=== PATIENT | female | born 1940 | race Two or more races ===

== ENCOUNTER 2020-05-02 10:45 | Outpatient (CLI) | payer MEDICARE ==
--- NOTE | 2020-05-03 12:30 | Mammography Report ---
BILATERAL DIGITAL SCREENING MAMMOGRAM: 05/02/2020 CLINICAL: Routine screening. No prior exams were available for comparison. The tissue of both breasts is predominantly fatty. No significant masses, calcifications, or other findings are seen in either breast. IMPRESSION: NEGATIVE There is no mammographic evidence of malignancy. A 1 year screening mammogram is recommended. This exam was interpreted at Station ID: [id number]. NOTE: For mammograms, a report in lay terms will be sent to the patient. Approximately 15% of breast malignancies will not be visualized mammographically. In the management of a palpable breast mass, a negative mammogram must not discourage biopsy of a clinically suspicious lesion. Electronically Signed By: Glynn Vick M.D., jr/penanaly:05/02/2020 11:16:26 ACR BI-RADS Category 1: Negative 3341F PARENCHYMAL PATTERN: (F) - The breast(s) demonstrate(s) diffuse fatty replacement. BI-RADS CATEGORY: (1) - 1 RECOMMENDATION: (ANNUAL) - Recommend routine annual screening mammography. [id number] 1 year screening LATERALITY: (B)
== END 2020-05-02 10:46 | disposition home or self-care (01) ==
LOC: DI.N 10:45
DX: Z12.31 Encounter for screening mammogram for malignant neoplasm of breast (principal)

== ENCOUNTER 2020-07-18 17:00 | Outpatient (CLI) | payer MEDICARE | END 2020-07-18 17:01 | disposition home or self-care (01) | LOC: COV 17:00 | PROVIDERS: ATTEND Ophthalmology | DX: Z01.812 Encounter for preprocedural laboratory examination (principal); H25.811 Combined forms of age-related cataract, right eye; E11.9 Type 2 diabetes mellitus without complications; Z20.822 Contact with and (suspected) exposure to COVID-19 ==

== ENCOUNTER 2020-07-21 06:22 | Day surgery (SDC) | payer MEDICARE ==
[~2020-07-21 06:22] MED LIST: KETOROLAC 0.45% OPHTH DROPS ONE; PROPARACAINE 0.5% OPHTH DROPS 15 ML ONE
[2020-07-21] MEDS ORDERED: PHENYLEPHRINE 2.5% OPHTH 2 ML DROPS RIGHTEYE ONE (06:54)
[2020-07-21] MEDS ORDERED: CYCLOPENTOLATE 1% OPHTH DROPS 2 ML RIGHTEYE ONE (06:54)
[2020-07-21] MEDS ORDERED: LACTATED RINGERS 500 ML IV ONE (06:56)
[2020-07-21] MEDS ORDERED: TIMOLOL 0.5% OPHTH DROPS ONE (07:02)
[2020-07-21] MEDS ORDERED: EPINEPHrine 1 MG/ML AMP ONE (07:02)
[2020-07-21] MEDS ORDERED: BRIMONIDINE 0.2% OPHTH DROPS 5 ML ONE (07:02)
[2020-07-21] MEDS ORDERED: TRIAMCIN/MOXIFLOX OPHTHALMIC 0.6 ML VIAL IO ONE ×2 (07:02→07:36)
[2020-07-21] MEDS ORDERED: MIDAZOLAM 2 MG/2 ML VIAL ONE (07:03)
[2020-07-21] MEDS ORDERED: VANCOMYCIN OPHTHALMI 8MG/0.8ML 8 MG/0.8 ML SYRINGE IO ONE ×2 (07:03→07:36)
[2020-07-21] MEDS ORDERED: BSS/LIDOCAINE/EPINEPHRINE 1 ML SYRINGE ONE (07:03)
--- NOTE | 2020-07-21 07:14 | ANESTHESIA ---
Pre-Anesthesia VS, & Labs - Diagnosis senile cataract right eye - Procedure right cataract extraction with intraocular lens Vital Signs: Temp Pulse Resp BP Pulse Ox 37.1 C 80 16 168/58 H 98 07/21/20 06:35 07/21/20 06:35 07/21/20 06:35 07/21/20 06:35 07/21/20 06:35 Height: 5 ft Weight (kg): 47.6 kg Body Mass Index: 20.5 BMI Classification: Healthy weight - NPO >8 hours - Is Patient ?: No - Lab Results Current Lab Results: Laboratory Tests 07/21/20 06:48: POC Whole Bld Glucose 98 Anes History & Medical History - Anesthetic History Anesthesia Complications: reports: No previous complications - Medical History Cardiovascular: reports: None, Hypertension Pulmonary: reports: Shortness of breath Gastrointestinal: reports: None Urinary: reports: None Musculoskeletal: reports: None Endocrine/Autoimmune: reports: Type 2 diabetes Skin: reports: None History of Cancer?: No - Surgical History Gynecologic: reports: section Exam General: Alert Dental: WNL Mouth Openin Fingerbreadth Mallampati classification: III Thyromental Distance: greater than 6 cm Respiratory: Lungs clear Cardiovascular: Regular rate, Normal S1, Normal S2 Plan Anesthesia Type: MAC Consent for Procedure(s) Verified and Reviewed: Yes Code Status: Attempt Resuscitation ASA classification: 3-Severe systemic disease Is this case an emergency?: No
[2020-07-21] MEDS ORDERED: BRIMONIDINE 0.2% OPHTH DROPS 5 ML OPTH ONE (07:35)
[2020-07-21] MEDS ORDERED: CHONDR SULF/HYALURONATE SYRINGE IO ONE (07:35)
[2020-07-21] MEDS ORDERED: EPINEPHrine 1 MG/ML AMP IR ONE (07:35)
[2020-07-21] MEDS ORDERED: TIMOLOL 0.5% OPHTH DROPS OPTH ONE (07:35)
[2020-07-21] MEDS ORDERED: PROPARACAINE 0.5% OPHTH DROPS 15 ML EACHEYE ONE (07:36)
[2020-07-21] MEDS ORDERED: BSS/LIDOCAINE/EPINEPHRINE 1 ML SYRINGE IO ONE (07:36)
[2020-07-21] MEDS ORDERED: fentaNYL 100 MCG/2 ML VIAL ONE (07:37)
[2020-07-21] MEDS ORDERED: TRYPAN BLUE 0.5 ML SYRINGE IO ONE (07:38)
[2020-07-21] MEDS ORDERED: LACTATED RINGERS 100 ML IV ONE (07:57)
[2020-07-21 08:19] VITALS: BP 134/55
--- NOTE | 2020-07-21 10:09 | ANESTHESIA POST OP EVALUATION ---
Anesthesia Post Eval - Post Anesthesia Eval Vitals: Last Vital Signs Temp 36.4 C L 07/21/20 08:17 Pulse 71 07/21/20 08:17 Resp 16 07/21/20 08:17 BP 134/55 H 07/21/20 08:17 Pulse Ox 100 07/21/20 08:17 CV Function Including HR & BP: Stable Pain Control: Satisfactory Nausea & Vomiting: Negative Mental Status: Baseline Respiratory Status: Airway Patent Hydration Status: Satisfactory Anesthesia Complications: None
--- NOTE | 2020-07-21 11:06 | OPERATIVE REPORT ---
Operative Report - Other Other Information/Narrative: Date of Surgery: 07/21/20 Preop Dx: Visually significant cataract right eye. This was the first cataract surgery. Postop Dx: Same Procedure: Phacoemulsification with posterior chamber intraocular lens implant right eye Surgeon: Dr. Yao Jay Anesthesia: Monitored anesthesia care Complications: None Operative Indications: This is a 80-year-old F with progressive vision loss in the right eye due to 4+ nuclear sclerotic, and 3-4+ posterior subcapsular. Best corrected visual acuity was 20/630 with glare to light perception vision in the right eye. Indications for surgery were: - Overall decrease in vision - Difficulty seeing words on a computer screen - Difficulty reading - Difficulty seeing words, closed captions, or game scores on TV - Difficulty seeing street signs - Difficulty driving at night because of headlights from other vehicles - Difficulty with glare or bright lights in any situation - Difficulty tracking a golf ball - Decreased acuity with firearms The patient was consented at length concerning the risks and benefits of cataract surgery after which the patient expressed a desire to proceed with surgery. Operative Procedure: The patient was taken into OR#3 and placed under monitored anesthesia care. A surgical time-out was conducted confirming correct patient, correct procedure, and correct surgical site. The patient was given topical anesthesia and then prepped and draped in the usual sterile fashion. The eye was entered at the 6 and 3 oclock positions. Intracameral Shugarcaine was injected into the anterior chamber followed by a dispersive viscoelastic. A continuous-tear curvilinear capsulorhexis was performed. The nucleus was hydrodissected and phacoemulsified. The cortex was evacuated using automated infusion and aspiration. A cohesive viscoelastic was injected into the capsular bag and a 24.5 diopter intraocular lens was inserted into the bag. Infusion and aspiration were used to evacuate the viscoelastic materials from the eye. The wounds were hydrated and the eye inflated to physiologic pressure using balanced salt solution. Approximately 0.25ml of a mixture of triamcinolone and moxifloxacin was injected trans-sclerally into the vitreous in the infero temporal quadrant using a 30 gauge cannula. An additional 0.55ml of a mixture of triamcinolone, moxifloxacin, and vancomycin was injected subconjunctivally in the superior quadrant for infection and inflammation prophylaxis. Wound integrity was checked with Weck-Mile sponges. The patient was taken from the operating room in good condition and given post-op instructions.
== END 2020-07-21 06:23 | disposition home or self-care (01) ==
LOC: SDS 06:22
PROVIDERS: ATTEND Ophthalmology
DX: E11.36 Type 2 diabetes mellitus with diabetic cataract (principal); H25.811 Combined forms of age-related cataract, right eye; I10 Essential (primary) hypertension; F03.90 Unspecified dementia, unspecified severity, without behavioral disturbance, psychotic disturbance, mood disturbance, and anxiety; Z79.84 Long term (current) use of oral hypoglycemic drugs; Z79.899 Other long term (current) drug therapy
CPT/HCPCS: 66984; A9270; J3490; J7120

== ENCOUNTER 2021-01-21 12:46 | Observation (INO) | payer MEDICARE ==
--- NOTE | 2021-01-21 13:17 | ED Physician Documentation ---
PD HPI DYSPNEA - Stated complaint Stated Complaint: SENT BY DOC-ANEMIA - Chief complaint Chief Complaint: General - History obtained from History obtained from: Patient - History of Present Illness Timing - onset: Unknown (The patient went to her primary care yesterday with somewhat routine medical appointment with complaints of fatigue for the last month or so. Had routine bloods drawn and noted to be significantly anemic and referred to the ER.) Timing - onset during: Light activity Timing - duration: Weeks, Months (fatigue and general weakness the past month or so. Son states the last routine blood testings were about a year ago.) Timing - details: Gradual onset Inciting event(s): Other (patient denies any visible blood loss (no nosebleeds, vaginal bleeding, blood/melena in stools).). No: URI Improved by: Rest Associated symptoms: Other (general weakness and dyspnea). No: Fever, Cough, Chest pain / discomfort, Bilateral edema Recently seen: Clinic (primary care visit yesterday with labs done, and result today showing significant anemia.) Review of Systems Constitutional: denies: Fever, Chills Nose: denies: Rhinorrhea / runny nose, Congestion, Epistaxis Throat: denies: Sore throat Cardiac: denies: Chest pain / pressure, Palpitations, Pedal edema Respiratory: reports: Dyspnea. denies: Cough GI: denies: Abdominal Pain, Vomiting, Diarrhea, Bloody / black stool : denies: Hematuria, Vaginal bleeding Neurologic: reports: Generalized weakness. denies: Focal weakness, Altered mental status, Headache Endocrine: denies: Weight loss, Easy bruising / bleeding PD PAST MEDICAL HISTORY - Past Medical History Cardiovascular: None, Hypertension Respiratory: Shortness of breath Endocrine/Autoimmune: Type 2 diabetes GI: None : None HEENT: None Psych: None Musculoskeletal: None Derm: None - Past Surgical History /MEDICAL ADMINISTRATOR: section - Present Medications Home Medications: Ambulatory Orders Medication Instructions Recorded Confirmed Lovastatin 20 mg PO QPM 01/21/21 01/21/21 Metoprolol Tartrate [Lopressor] 25 mg PO DAILY 01/21/21 hydroCHLOROthiazide [Hydrodiuril] 25 mg PO DAILY 01/21/21 01/21/21 metFORMIN [Glucophage] 1,000 mg PO BIDWM 01/21/21 01/21/21 - Allergies Allergies/Adverse Reactions: Allergies Allergy/AdvReac Type Severity Reaction Status Date / Time No Known Drug Allergies Allergy Verified 01/21/21 13:13 PD ED PE NORMAL - Vitals Vital signs reviewed: Yes - General General: Alert and oriented X 3, No acute distress, Well developed/nourished - HEENT HEENT: Pharynx benign - Neck Neck: Supple, no meningeal sign, No adenopathy - Cardiac Cardiac: RRR, No murmur - Respiratory Respiratory: Clear bilaterally - Abdomen Abdomen: Normal bowel sounds, Soft, Non tender, Non distended - Rectal Rectal: Deferred - Back Back: No CVA TTP - Derm Derm: Warm and dry. No: Normal color (moderately pale coloration) - Extremities Extremities: Normal ROM s pain, No edema, No calf tenderness / cord - Neuro Neuro: Alert and oriented X 3, No motor deficit, Normal speech Eye Opening: Spontaneous Motor: Obeys Commands Verbal: Oriented GCS Score: 15 Results - Vitals Vitals: Vital Signs - 24 hr 01/21/21 01/21/21 01/21/21 13:05 15:12 15:48 Temperature 36.5 C 36.6 C Heart Rate 66 72 73 Respiratory 20 16 12 Rate Blood Pressure 127/81 H 135/55 H 134/56 H O2 Saturation 99 98 01/21/21 15:59 Temperature 36.6 C Heart Rate 75 Respiratory 15 Rate Blood Pressure 131/62 H O2 Saturation Oxygen O2 Source Room air - Labs Labs: Laboratory Tests 01/21/21 01/21/21 01/21/21 14:15 14:15 14:15 WBC 6.7 RBC 2.79 L Hgb 4.6 L* Hct 18.1 L* MCV 64.9 L MCH 16.5 L MCHC 25.4 L RDW 19.7 H Plt Count 306 MPV 9.3 Neut # (Auto) 5.4 Lymph # (Auto) 0.6 L [place] # (Auto) 0.6 Eos # (Auto) 0.0 Baso # (Auto) 0.0 Absolute Nucleated RBC 0.04 Nucleated RBC % 0.6 Sodium 138 Potassium 4.0 Chloride 100 L Carbon Dioxide 26 Anion Gap 12.0 BUN 22 H Creatinine 0.8 Estimated GFR (MDRD) 69 L Glucose 195 H Calcium 9.2 Iron 16 L TIBC 475 H % Saturation 3 L Transferrin 339 Total Bilirubin 0.8 AST 15 ALT 15 Alkaline Phosphatase 50 Troponin I High Sens B-Natriuretic Peptide Total Protein 6.9 Albumin 4.0 Globulin 2.9 Albumin/Globulin Ratio 1.4 Lipase 34 Vitamin B12 Folate Blood Type A POSITIVE Blood Type Recheck Antibody Screen NEGATIVE Crossmatch IS Only See Detail 01/21/21 01/21/21 01/21/21 14:15 14:15 14:15 WBC RBC Hgb Hct MCV MCH MCHC RDW Plt Count MPV Neut # (Auto) Lymph # (Auto) [place] # (Auto) Eos # (Auto) Baso # (Auto) Absolute Nucleated RBC Nucleated RBC % Sodium Potassium Chloride Carbon Dioxide Anion Gap BUN Creatinine Estimated GFR (MDRD) Glucose Calcium Iron TIBC % Saturation Transferrin Total Bilirubin AST ALT Alkaline Phosphatase Troponin I High Sens 128.3 H* B-Natriuretic Peptide 559 H Total Protein Albumin Globulin Albumin/Globulin Ratio Lipase Vitamin B12 437 Folate 10.13 Blood Type Blood Type Recheck Antibody Screen Crossmatch IS Only 01/21/21 14:47 WBC RBC Hgb Hct MCV MCH MCHC RDW Plt Count MPV Neut # (Auto) Lymph # (Auto) [place] # (Auto) Eos # (Auto) Baso # (Auto) Absolute Nucleated RBC Nucleated RBC % Sodium Potassium Chloride Carbon Dioxide Anion Gap BUN Creatinine Estimated GFR (MDRD) Glucose Calcium Iron TIBC % Saturation Transferrin Total Bilirubin AST ALT Alkaline Phosphatase Troponin I High Sens B-Natriuretic Peptide Total Protein Albumin Globulin Albumin/Globulin Ratio Lipase Vitamin B12 Folate Blood Type Blood Type Recheck A POSITIVE Antibody Screen Crossmatch IS Only PD MEDICAL DECISION MAKING - ED course Complexity details: reviewed results, re-evaluated patient (Dyspnea on exertion. No orthopnea nor edema per se. Does have elevated BNP and troponin suggestive of ischemia related to the anemia presumably.), considered differential (severe anemia without noted blood loss. had not had prior blood count for about a year, so rate of development of the anemia uncertain.), d/w patient Departure - Departure Disposition: ED Place in Observation Clinical Impression: Severe anemia, Iron deficiency, Dyspnea on exertion, Elevated troponin Condition: Stable Record reviewed to determine appropriate education?: Yes
[2021-01-21] MEDS ORDERED: SODIUM CHLORIDE 0.9% 1,000 ML IV STA (14:09)
[2021-01-21 14:37] LABS: BASOPHILS % (AUTO) 0.4 %; EOSINOPHILS % (AUTO) 0.4 %; LYMPHOCYTES # (AUTO) 0.6 10^3/uL (1.5-3.5); LYMPHOCYTES % (AUTO) 8.8 %; MEAN CORPUSCULAR HEMOGLOBIN 16.5 pg (27.0-31.0); MEAN CORPUSCULAR HGB CONC 25.4 g/dL (32.0-36.0); MEAN CORPUSCULAR VOLUME 64.9 fL (81.0-99.0); MEAN PLATELET VOLUME 9.3 fL (7.9-10.8); MONOCYTES # (AUTO) 0.6 10^3/uL (0.0-1.0); MONOCYTES % (AUTO) 8.8 %; NEUTROPHILS # (AUTO) 5.4 10^3/uL (1.5-6.6); NEUTROPHILS % (AUTO) 81.3 %; NRBC ABSOLUTE COUNT (AUTO) 0.04 x10^3/uL; NUCLEATED RED BLOOD CELLS AUTO 0.6 /100WBC; PLT - PLATELET COUNT 306 10^3/uL (130-450); RED BLOOD COUNT 2.79 10^6/uL (4.20-5.40); RED CELL DISTRIBUTION WIDTH 19.7 % (12.0-15.0); WHITE BLOOD COUNT 6.7 x10^3/uL (4.8-10.8)
[2021-01-21 14:41] LABS: HCT - HEMATOCRIT 18.1 % (37.0-47.0); HGB - HEMOGLOBIN 4.6 g/dL (12.0-16.0)
[2021-01-21 14:50] LABS: ALBUMIN/GLOBULIN RATIO 1.4 (1.0-2.2); BILIRUBIN,TOTAL 0.8 mg/dL (0.2-1.0); CALCIUM 9.2 mg/dL (8.5-10.3); CREATININE 0.8 mg/dL (0.4-1.0); TOTAL PROTEIN 6.9 g/dL (6.7-8.2)
[2021-01-21 15:07] LABS: FOLATE 10.13 ng/mL (5.90 - >24.8)
[2021-01-21] MEDS ORDERED: ONDANSETRON ODT 4 MG TABLET TL PRN (16:02)
[2021-01-21] MEDS ORDERED: ACETAMINOPHEN 325 MG TABLET PO PRN (16:02)
[2021-01-21] MEDS ORDERED: oxyCODONE 5 MG TABLET PO PRN (16:02)
[2021-01-21] MEDS ORDERED: ONDANSETRON 4 MG/2 ML VIAL IVP PRN (16:02)
[2021-01-21] MEDS ORDERED: SODIUM CHLORIDE FLUSH 0.9% 10 ML SYRINGE IVP PRN (16:02)
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
[2021-01-21] MEDS ORDERED: LACTATED RINGERS 1,000 ML IV SCH (17:00)
[2021-01-21 17:19] LABS: CORONAVIRUS 229E-RESP PCR NOT DETECTED; CORONAVIRUS HKU1-RESP PCR NOT DETECTED; CORONAVIRUS NL63-RESP PCR NOT DETECTED; CORONAVIRUS OC43-RESP PCR NOT DETECTED
[2021-01-21 17:20] LABS: B. PARAPERTUSSIS- RESP PCR PAN NOT DETECTED; B. PERTUSSIS- RESP PCR PANEL NOT DETECTED; C. PNEUMONIAE- RESP PCR PANEL NOT DETECTED; HUMAN METAPNEUMOVIRUS NOT DETECTED; INFLUENZA A- RESP PCR PANEL NOT DETECTED; INFLUENZA B - RESP PCR PANEL NOT DETECTED; M. PNEUMONIAE- RESP PCR PANEL NOT DETECTED; PARAINFLUENZA VIRUS 1 NOT DETECTED; PARAINFLUENZA VIRUS 2 NOT DETECTED; PARAINFLUENZA VIRUS 3 NOT DETECTED; PARAINFLUENZA VIRUS 4 NOT DETECTED; RHINOVIRUS/ENTEROVIRUS NOT DETECTED; RSV- RESP PCR PANEL NOT DETECTED; SARS-CoV-2 -RESP PCR PANEL NOT DETECTED
[2021-01-21] MEDS: SODIUM CHLORIDE FLUSH 0.9% 10 ML SYRINGE IVP SCH (17:51)
[2021-01-21] MEDS: INSULIN ASPART 300 UNIT/3 ML PEN SUBQ SCH (21:54)
[2021-01-22] MEDS: SODIUM CHLORIDE FLUSH 0.9% 10 ML SYRINGE IVP SCH ×2 (00:40→09:09)
[2021-01-22 05:47] LABS: HCT - HEMATOCRIT 24.2 % (37.0-47.0); HGB - HEMOGLOBIN 7.2 g/dL (12.0-16.0); MEAN CORPUSCULAR HEMOGLOBIN 21.1 pg (27.0-31.0); MEAN CORPUSCULAR HGB CONC 29.8 g/dL (32.0-36.0); MEAN CORPUSCULAR VOLUME 70.8 fL (81.0-99.0); MEAN PLATELET VOLUME 8.8 fL (7.9-10.8); RED BLOOD COUNT 3.42 10^6/uL (4.20-5.40); RED CELL DISTRIBUTION WIDTH 23.6 % (12.0-15.0); WHITE BLOOD COUNT 7.3 x10^3/uL (4.8-10.8)
[2021-01-22] MEDS: INSULIN ASPART 300 UNIT/3 ML PEN SUBQ SCH ×2 (07:35→11:53)
--- NOTE | 2021-01-22 07:37 | PHARMACY PROGRESS NOTE ---
- Best Possible Medication History Admit Date and Time: 01/21/21 1602 Processed by: Pharmacy Medication History completed: Yes Secondary Source(s): Pharmacy records, Insurance records As the person ultimately responsible for medication therapy, providers are able to order a medication from an existing home medication list in [facility] via the "Reconcile Routine" prior to Confirmation of that medication by child support case officer. Such practice is discouraged except when the physician, in their clinical judgment, deems that a medical need exists for a medication without regard to previous use.
[2021-01-22] MEDS ORDERED: IRON DEXTRAN 1,000 MG in SODIUM CHLORIDE 0.9% 250 ML IV ONE (08:11)
[2021-01-22] MEDS ORDERED: METOPROLOL SUCCINATE 25 MG TABLET PO SCH (09:00)
[2021-01-22 11:23] VITALS: BP 123/53
--- NOTE | 2021-01-22 12:22 | Discharge Plan ---
Discharge Plan Problem Reviewed?: Yes Disposition: Home, Self Care Condition: Stable Prescriptions: Ferrous Gluconate 240 mg PO DAILY #30 tablet Diet: Regular Activity Restrictions: Activity as Tolerated Shower Restrictions: No Driving Restrictions: Yes Health Concerns: The patient presented to the hospital with fatigue and shortness of breath. Her labs showed her to have severe anemia. A normal amount of hemoglobin in a woman is 13 to 14 g. She was 4.6 g. On review of systems she does not give any history of weight loss, stomach pain, bowel pain, change in bowel habits. She is a very, very, very picky eater and her diet is relatively restricted due to her lack of desire to eat certain foods including protein. She sepsis mainly on fish or shrimp. We have transfused her 2 units of blood. Hemoglobin is now 7.2. She is a lively conversationalist. Blood pressure is stable. Oxygen is stable. She did receive 1000 mg of iron dextran prior to discharge. Iron level was 16 on admission. Normal is 28 is 170. Plan of Treatment: 1. Establish why she has anemia. There is a strong suspicion that it is nutritional deficiency but in an elderly female, who has no source of bleeding such as vaginal bleeding or GI bleeding, you still need to suspect ulcer, or malignancy. 2. Please make sure she sees her primary care provider and after establishing what she wants, and her family wants, she may or may not be a candidate for upper endoscopy and lower endoscopy. 3. Mild to moderate cognitive deficit was identified on exam on admission. She is doing very well at home and taken very good care of by her son and son's girlfriend. Nevertheless, she does meet criteria for low income status that would qualify her for help at home. Social work has met with her son to provide him with information and resources. Care Goals: She would like to continue living with her son. Son endorses that goal as well. She will need to find out why she is anemic and see if it is a treatable problem. Assessment: Patient and son both expressed their understanding of care goals and will follow through No Smoking: If you smoke, Please STOP! Call for help. Follow-up with: BRETT RIZZO PA-C [Primary Care Provider] -
[2021-01-22 14:01] LABS: ESTIMATED AVERAGE GLUCOSE 134 mg/dL (70-100); HEMOGLOBIN A1c% 6.3 % (4.27-6.07)
--- NOTE | 2021-01-22 19:27 | DISCHARGE SUMMARY ---
Discharge Summary Admit Date: 01/21/21 Discharge Date: 01/22/21 Discharging Provider: Tessa Zuniga MD Primary Care Provider: HYACINTH Costa Code Status: Attempt Resuscitation Condition at Discharge: Stable Discharge Disposition: 01 Home, Self Care - DIAGNOSES Discharge Diagnoses with Status of Each Condition: 1. Iron deficiency anemia, unspecified 2. Controlled type 2 diabetes mellitus without complication without long-term use of insulin 3. Hypertension 4. Cognitive decline - HPI History of Present Illness: A 80-year-old white female whose main medical problems consist of high blood pressure and diabetes that presents to the emergency room with weeks of fatigue, and worsening shortness of breath. No chest pain, cough, orthopnea, leg edema. She is a former smoker but stopped in her 30s. She has had no weight changes. No fevers, no sweats. She denies abdominal pain. She denies blood in her stool. She denies black stool. She feels like she has had no change in appetite. She lives with her son. He states that she is a very, very, very picky eater. She does not like vegetables. She cannot eat hard meats because of her teeth. He thinks that she stays at about 108 pounds and she is always been tiny. She eats a lot of fish. Shrimp. But no beef, pork. He does get her to eat the vegetarian burgers from [employer]. But again he says that she is a very picky eater and sometimes she just does not eat very much. She presented to her primary care provider office at [facility] on Saturday where hemoglobin was found to be very low so they sent her to the emergency room. Today is Saturday. She came to the emergency room today and repeat labs showed her to have hemoglobin of 4.6. Hematocrit 18.1. MCV is 64.9. Platelets 306. Her troponin is 128. Are high-sensitivity troponin level goes as high as 14.8. BNP is 559. B12 levels are normal. Folate levels are normal. However iron is 16, TIBC 475, percent saturation 3. Random glucose is 195. The emergency room provider is asking us to place the patient in observation based of the criteria of anemia with possible cardiac ischemia or congestive heart failure. - HOSPITAL COURSE Hospital Course: The patient is a aiden female who was transfused 2 units of blood. Hemoglobin went up to above 7. She is above the threshold for further transfusion. She will need to be seen in the outpatient setting to make sure that this is nutritional deficiency. She has been given 1000 mg of INFeD. She may need an EGD and colonoscopy but her son stated she may not be out for that. She is discharged in stable condition with a temperature of 36.9, pulse 72, blood pressure 123/53. Respirations 16 and 95% on room air. She is 5 feet 1 inches tall and is 46.49 kg. Needs urgent referral for dentistry because of her teeth. That may be a reason she is not eating as well. Thin, cheerful, nonstop talker. Neck is supple. Lungs are clear. Regular rate and rhythm. Severe decreased muscle mass. Abdominal exam negative. No edema. - ALLERGIES Allergies/Adverse Reactions: Allergies Allergy/AdvReac Type Severity Reaction Status Date / Time No Known Drug Allergies Allergy Verified 01/21/21 13:13 - MEDICATIONS Home Medications: Ambulatory Orders Medication Instructions Recorded Confirmed Lovastatin 20 mg PO QPM 01/21/21 01/21/21 Metoprolol Tartrate [Lopressor] 12.5 mg PO BID 01/21/21 01/22/21 hydroCHLOROthiazide [Hydrodiuril] 25 mg PO DAILY 01/21/21 01/21/21 metFORMIN [Glucophage] 1,000 mg PO BIDWM 01/21/21 01/21/21 Ferrous Gluconate 240 mg PO DAILY #30 tablet 01/22/21 - LABS Result Diagrams: 01/22/21 05:40 01/21/21 14:15
== END 2021-01-22 13:37 | disposition home or self-care (01) ==
LOC: ED 12:46 → MS2 16:02
PROVIDERS: ADMIT Specialist; ATTEND Specialist
DX: D50.9 Iron deficiency anemia, unspecified (principal); E11.9 Type 2 diabetes mellitus without complications; I10 Essential (primary) hypertension; G31.84 Mild cognitive impairment of uncertain or unknown etiology; K08.9 Disorder of teeth and supporting structures, unspecified; R32 Unspecified urinary incontinence; R64 Cachexia; Z68.1 Body mass index [BMI] 19.9 or less, adult; Z20.822 Contact with and (suspected) exposure to COVID-19; Z87.891 Personal history of nicotine dependence; Z79.84 Long term (current) use of oral hypoglycemic drugs; Z79.899 Other long term (current) drug therapy
CPT/HCPCS: 36415; 36430; 80053; 82607; 82746; 83036; 83540; 83690; 83880; 84443; 84466; 84484; 85025; 85027; 86850; 86900; 86901; 86920; 87631; 93005; 96361; 96374; 99284; 99285; A9270; G0378; J1750; J7120; P9016; 0202U

== ENCOUNTER 2021-05-04 06:28 | Day surgery (SDC) | payer MEDICARE ==
[~2021-05-04 06:28] MED LIST changes: +CYCLOPENTOLATE 1% OPHTH DROPS 2 ML ONE; +PHENYLEPHRINE 2.5% OPHTH 2 ML DROPS ONE
[2021-05-04] MEDS ORDERED: LACTATED RINGERS 1,000 ML IV ONE ×2 (06:31→07:58)
[2021-05-04] MEDS ORDERED: MIDAZOLAM 2 MG/2 ML VIAL ONE (07:10)
[2021-05-04] MEDS ORDERED: TRIAMCIN/MOXIFLOX OPHTHALMIC 0.6 ML VIAL IO ONE ×3 (07:11→13:36)
[2021-05-04] MEDS ORDERED: BRIMONIDINE 0.2% OPHTH DROPS 5 ML ONE (07:12)
[2021-05-04] MEDS ORDERED: TIMOLOL 0.5% OPHTH DROPS ONE (07:12)
[2021-05-04] MEDS ORDERED: EPINEPHrine 1 MG/ML AMP ONE (07:12)
[2021-05-04] MEDS ORDERED: BSS/LIDOCAINE/EPINEPHRINE 1 ML VIAL ONE (07:13)
--- NOTE | 2021-05-04 07:13 | ANESTHESIA ---
Pre-Anesthesia VS, & Labs - Diagnosis L senile combined cataract - Procedure L extraction cataract w IOL Vital Signs: Temp Pulse Resp BP Pulse Ox 36.8 C 82 18 181/80 H 100 05/04/21 06:32 05/04/21 06:32 05/04/21 06:32 05/04/21 06:32 05/04/21 06:32 Height: 5 ft 2 in Weight (kg): 51.4 kg Body Mass Index: 20.7 BMI Classification: Healthy weight - NPO >8 hours - Is Patient ?: No - Lab Results Current Lab Results: Laboratory Tests 05/04/21 06:58: POC Whole Bld Glucose 155 H Lab results reviewed: Yes Home Medications and Allergies Lovastatin 20 mg PO QPM 01/21/21 Metoprolol Tartrate [Lopressor] 12.5 mg PO BID 01/21/21 hydroCHLOROthiazide [Hydrodiuril] 25 mg PO DAILY 01/21/21 metFORMIN [Glucophage] 1,000 mg PO BIDWM 01/21/21 Allergies/Adverse Reactions: Allergies Allergy/AdvReac Type Severity Reaction Status Date / Time No Known Drug Allergies Allergy Verified 01/21/21 13:13 Anes History & Medical History - Anesthetic History Anesthesia Complications: reports: No previous complications Family history of Anesthesia Complications: Denies Family history of Malignant Hyperthermia: Denies - Medical History Cardiovascular: reports: Hypertension Pulmonary: reports: Shortness of breath Gastrointestinal: reports: None Urinary: reports: Incontinence Neuro: reports: Dementia Musculoskeletal: reports: Chronic back pain Endocrine/Autoimmune: reports: Type 2 diabetes Skin: reports: None Smoking Status: Never smoker - Surgical History Eyes Ears Nose Throat (EENT): reports: Cataracts Gynecologic: reports: section, Tubal ligation Exam General: Alert, Oriented x3, Cooperative Dental: Poor dentition Mouth Openin Fingerbreadth Neck Mobility: Normal Mallampati classification: III Thyromental Distance: 4-6 cm Respiratory: Lungs clear, Normal breath sounds, No respiratory distress Cardiovascular: Regular rate Neurological: Normal speech Mental/Cognitive Status: Normal for patient Cognitive Status: Within normal limits Plan Anesthesia Type: General Consent for Procedure(s) Verified and Reviewed: Yes Code Status: Attempt Resuscitation ASA classification: 3-Severe systemic disease Is this case an emergency?: No
[2021-05-04] MEDS ORDERED: ONDANSETRON 4 MG/2 ML VIAL ONE (07:22)
[2021-05-04] MEDS ORDERED: PROPOFOL 200 MG/20 ML VIAL IVP ONE (07:22)
[2021-05-04] MEDS ORDERED: BRIMONIDINE 0.2% OPHTH DROPS 5 ML OPTH ONE (07:35)
[2021-05-04] MEDS ORDERED: EPINEPHrine 1 MG/ML AMP IR ONE (07:35)
[2021-05-04] MEDS ORDERED: PROPARACAINE 0.5% OPHTH DROPS 15 ML EACHEYE ONE (07:36)
[2021-05-04] MEDS ORDERED: BSS/LIDOCAINE/EPINEPHRINE 1 ML SYRINGE IO ONE (07:36)
[2021-05-04] MEDS ORDERED: TIMOLOL 0.5% OPHTH DROPS OPTH ONE (07:36)
[2021-05-04] MEDS ORDERED: VANCOMYCIN OPHTHALMI 8MG/0.8ML 8 MG/0.8 ML SYRINGE IO ONE (07:36)
[2021-05-04] MEDS ORDERED: HYDROmorphone 0.5 MG/0.5 ML SYRINGE IVP PRN (08:02)
[2021-05-04] MEDS ORDERED: METOCLOPRAMIDE 10 MG/2 ML VIAL IVP PRN (08:02)
[2021-05-04] MEDS ORDERED: NALOXONE 0.4 MG/ML VIAL IVP PRN (08:02)
[2021-05-04] MEDS ORDERED: fentaNYL 100 MCG/2 ML VIAL IVP PRN (08:02)
[2021-05-04] MEDS ORDERED: MORPHINE 2 MG/ML CARPUJECT IVP PRN (08:02)
[2021-05-04] MEDS ORDERED: ePHEDrine 50 MG/ML VIAL IVP PRN (08:02)
[2021-05-04] MEDS ORDERED: ATROPINE ABBOJECT 1 MG/10 ML SYRINGE IVP PRN (08:02)
[2021-05-04] MEDS ORDERED: ONDANSETRON 4 MG/2 ML VIAL IVP PRN (08:02)
[2021-05-04 08:57] VITALS: BP 157/65
[2021-05-04] MEDS ORDERED: LACTATED RINGERS 1,000 ML IV SCH (09:00)
--- NOTE | 2021-05-04 09:04 | ANESTHESIA POST OP EVALUATION ---
Anesthesia Post Eval - Post Anesthesia Eval Vitals: Last Vital Signs Temp 36 C L 05/04/21 08:45 Pulse 68 05/04/21 08:45 Resp 16 05/04/21 08:45 BP 157/65 H 05/04/21 08:45 Pulse Ox 98 05/04/21 08:45 CV Function Including HR & BP: Stable Pain Control: Satisfactory Nausea & Vomiting: Negative Mental Status: Baseline Respiratory Status: Airway Patent Hydration Status: Satisfactory Anesthesia Complications: None
--- NOTE | 2021-05-04 09:56 | OPERATIVE REPORT ---
Operative Report - Other Other Information/Narrative: Date of Surgery: 05/04/21 Preop Dx: Visually significant cataract left eye. Cataract surgery was performed in the right eye on . Postop Dx: Same Procedure: Phacoemulsification with posterior chamber intraocular lens implant left eye Surgeon: Dr. 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 Best corrected visual acuity was hAand motion vision in the left eye. Indications for surgery were: - Difficulty seeing words on a computer screen - Difficulty reading - Difficulty seeing words, closed captions, or game scores on TV - Difficulty seeing street signs - Difficulty driving in low light or at night - Difficulty driving at night because of headlights from other vehicles - Difficulty tracking a golf ball - Decreased acuity with firearms The patient was consented at length concerning the risks and benefits of cataract surgery after which the patient expressed a desire to proceed with surgery. Operative Procedure: The patient was taken into OR#3 and placed under monitored anesthesia care. A surgical time-out was conducted confirming correct patient, correct procedure, and correct surgical site. The patient was given topical anesthesia and then prepped and draped in the usual sterile fashion. The eye was entered at the 6 and 3 oclock positions. Intracameral Shugarcaine was injected into the anterior chamber followed by a dispersive viscoelastic. There was barely a red reflex but a continuous-tear curvilinear capsulorhexis was performed. The nucleus was hydrodissected and phacoemulsified. This was an incredibly hard nucleus requiring a lot of phaco power. The cortex was evacuated using automated infusion and aspiration. There was a break in the inferior capsulerhexis. A cohesive viscoelastic was injected into the capsular bag and a 24.0 diopter intraocular lens was inserted into the bag and rotated such the haptics weere horizontally oriented. It was well-centered and stable.. Infusion and aspiration were used to evacuate the viscoelastic materials from the eye. The wounds were hydrated and the eye inflated to physiologic pressure using balanced salt solution. Approximately 0.25ml of a mixture of triamcinolone and moxifloxacin was injected trans-sclerally into the vitreous in the inferotemporal quadrant using a 30 gauge cannula. An additional 0.55ml of a mixture of triamcinolone, moxifloxacin, and vancomycin was injected subconjunctivally in the superior quadrant for infection and inflammation prophylaxis. Wound integrity was checked with Weck-Mile sponges. The patient was taken from the operating room in good condition and given post-op instructions.
== END 2021-05-04 06:29 | disposition home or self-care (01) ==
LOC: SDS 06:28
PROVIDERS: ATTEND Ophthalmology
DX: E11.36 Type 2 diabetes mellitus with diabetic cataract (principal); H25.812 Combined forms of age-related cataract, left eye; Z79.84 Long term (current) use of oral hypoglycemic drugs; Z98.41 Cataract extraction status, right eye
CPT/HCPCS: 66984; A9270; J3490; J7120

== ENCOUNTER 2021-10-03 09:49 | Emergency (ER) | payer MEDICARE ==
--- OUTSIDE RECORDS SUMMARY | 2021-10-03 10:01 | EXTERNAL MEDICAL SUMMARY RPT | Continuity of Care Document ---
:1940 Author Organization [facility] Address [address] [place] [address] Phone Allergies and Intolerances date description facility type (no date) No Known Drug Allergies [facility] (unkn own) Encounters No information. Functional Status No information. Immunizations No information. Medications date description facility [id number] Lovastatin 20 MG Oral Tablet [facility] [id number]+0000 Hydrochlorothiazide 25 MG Oral Tablet [facility] [id number]+0000 Metformin hydrochloride 1000 MG Oral T ablet [facility] [id number]+0000 Metoprolol Tartrate 25 MG Oral Tablet [facility] Problems No information. Procedures date description facility [id number] [facility] [id number]+0000 [facility] Results/Labs test date author facility value unit interpret ation Result panel 1 (unknown) (no (unknown) (unknown) (no value) (units (unk nown) date) unknown) (unknown) (no (unknown) (unknown) [place], [place] (units ( unknown) date) [id number] unknown) (unknown) (no (unknown) (unknown) [place] (units (unkno wn) date) unknown) (unknown) (no (unknown) (unknown) [facility] (units (unknown) date) unknown) (unknown) (no (unknown) (unknown) Nurse Office (units (u nknown) date) Visit unknown) (unknown) (no (unknown) (unknown) (no value) (units (unk nown) date) unknown) (unknown) (no (unknown) (unknown) COVID-19 (units (u nknown) date) unknown) (unknown) (no (unknown) (unknown) [id number] (units (unkno wn) date) unknown) (unknown) (no (unknown) (unknown) 09/01/21 (units (unkno wn) date) unknown) (unknown) (no (unknown) (unknown) Age/Sex: 81 / F (units (unknown) date) Date of unknown) Service: (unknown) (no (unknown) (unknown) Attending Dr: (units ( unknown) date) Lobito Oconnor MD unknown) (unknown) (no (unknown) (unknown) : 1940 (units (unknown) date) Acct:[id number] unknown) (unknown) (no (unknown) (unknown) Dept at (units (unkno wn) date) . unknown) (unknown) (no (unknown) (unknown) Documented By: (units (unknown) date) Lobito Oconnor MD unknown) 09/01/21 1110 (unknown) (no (unknown) (unknown) Evaluation/Scree (units (unknown) date) bryce for possible unknown) COVID-19 completed?: Yes- COVID-19 CPT (unknown) (no (unknown) (unknown) Health (units (unkno wn) date) Management unknown) (unknown) (no (unknown) (unknown) Health (units (unkno wn) date) Management unknown) reviewed with patient: No (unknown) (no (unknown) (unknown) Intake (units (unkno wn) date) unknown) (unknown) (no (unknown) (unknown) Intake Note: (units (u nknown) date) unknown) (unknown) (no (unknown) (unknown) Loc: [facility] (units (unkno wn) date) unknown) (unknown) (no (unknown) (unknown) Note (units (unkno wn) date) unknown) (unknown) (no (unknown) (unknown) Patient: (units (unkno wn) date) Tanisha Kirk Gold unknown) MR#: [id number] (unknown) (no (unknown) (unknown) Pt came in for a (units (unknown) date) pre procedure unknown) covid test. Denied any symptoms. Explained (unknown) (no (unknown) (unknown) Reason For Visit (units (unknown) date) unknown) (unknown) (no (unknown) (unknown) Signed By: (units (unk nown) date) unknown) (unknown) (no (unknown) (unknown) This note may (units ( unknown) date) have been all or unknown) partially generated using voice recognition (unknown) (no (unknown) (unknown) Visit Reasons: (units (unknown) date) [facility] unknown) (unknown) (no (unknown) (unknown) have occurred. (units (unknown) date) If there are any unknown) questions, please contact the Medical Records (unknown) (no (unknown) (unknown) may occur. (units (unk nown) date) Occasional unknown) wrong-word or 'sound-alike' substitutions may have (unknown) (no (unknown) (unknown) occurred due to (units (unknown) date) the inherent unknown) limitations of voice recognition software. Please (unknown) (no (unknown) (unknown) procedure to pt. (units (unknown) date) Tolerated test unknown) well. (unknown) (no (unknown) (unknown) read the note (units ( unknown) date) carefully and unknown) recognize, using context, where these substitutions (unknown) (no (unknown) (unknown) software. (units (unkn own) date) Although every unknown) effort is made to edit content, director public policy errors Result panel 2 (unknown) (no date) (unknown) (unknown) Negative (units (unkn own) unknown) Result panel 3 (unknown) (no (unknown) (unknown) (no value) (units (unk nown) date) unknown) (unknown) (no (unknown) (unknown) 09/01/21 1322 (units ( unknown) date) unknown) (unknown) (no (unknown) (unknown) [place] (units ( unknown) date) [id number] unknown) (unknown) (no (unknown) (unknown) [facility] (units (unknown) date) unknown) (unknown) (no (unknown) (unknown) Nurse Office (units (u nknown) date) Visit unknown) (unknown) (no (unknown) (unknown) Signed (units (unkno wn) date) unknown) (unknown) (no (unknown) (unknown) (no value) (units (unk nown) date) unknown) (unknown) (no (unknown) (unknown) COVID-19 (units (u nknown) date) unknown) (unknown) (no (unknown) (unknown) [id number] (units (unkno wn) date) unknown) (unknown) (no (unknown) (unknown) 09/01/21 (units (unkno wn) date) unknown) (unknown) (no (unknown) (unknown) Age/Sex: 81 / F (units (unknown) date) Date of unknown) Service: (unknown) (no (unknown) (unknown) Attending Dr: (units ( unknown) date) Lobito Oconnor MD unknown) (unknown) (no (unknown) (unknown) : 1940 (units (unknown) date) Acct:[id number] unknown) (unknown) (no (unknown) (unknown) Dept at (units (unkno wn) date) . unknown) (unknown) (no (unknown) (unknown) Documented By: (units (unknown) date) Lobito Oconnor MD unknown) 09/01/21 1110 (unknown) (no (unknown) (unknown) Evaluation/Scree (units (unknown) date) bryce for possible unknown) COVID-19 completed?: Yes- COVID-19 CPT (unknown) (no (unknown) (unknown) Health (units (unkno wn) date) Management unknown) (unknown) (no (unknown) (unknown) Health (units (unkno wn) date) Management unknown) reviewed with patient: No (unknown) (no (unknown) (unknown) Intake (units (unkno wn) date) unknown) (unknown) (no (unknown) (unknown) Intake Note: (units (u nknown) date) unknown) (unknown) (no (unknown) (unknown) Loc: [facility] (units (unkno wn) date) unknown) (unknown) (no (unknown) (unknown) Note (units (unkno wn) date) unknown) (unknown) (no (unknown) (unknown) Patient: (units (unkno wn) date) Tanisha Kirk unknown) MR#: [id number] (unknown) (no (unknown) (unknown) Pt came in for a (units (unknown) date) pre procedure unknown) covid test. Denied any symptoms. Explained (unknown) (no (unknown) (unknown) Reason For Visit (units (unknown) date) unknown) (unknown) (no (unknown) (unknown) Signed By: (units (unk nown) date) <Electronically unknown) signed by Lobito Oconnor MD> (unknown) (no (unknown) (unknown) This note may (units ( unknown) date) have been all or unknown) partially generated using voice recognition (unknown) (no (unknown) (unknown) Visit Reasons: (units (unknown) date) [facility] unknown) (unknown) (no (unknown) (unknown) have occurred. (units (unknown) date) If there are any unknown) questions, please contact the Medical Records (unknown) (no (unknown) (unknown) may occur. (units (unk nown) date) Occasional unknown) wrong-word or 'sound-alike' substitutions may have (unknown) (no (unknown) (unknown) occurred due to (units (unknown) date) the inherent unknown) limitations of voice recognition software. Please (unknown) (no (unknown) (unknown) procedure to pt. (units (unknown) date) Tolerated test unknown) well. (unknown) (no (unknown) (unknown) read the note (units ( unknown) date) carefully and unknown) recognize, using context, where these substitutions (unknown) (no (unknown) (unknown) software. (units (unkn own) date) Although every unknown) effort is made to edit content, director public policy errors Result panel 4 (unknown) (no date) (unknown) (unknown) (no value) (units 226 37-3 unknown) (unknown) (no date) (unknown) (unknown) (no value) (units 495 60-6 unknown) (unknown) (no date) (unknown) (unknown) (no value) (units 191 39-5 unknown) (unknown) (no date) (unknown) (unknown) (no value) (units 226 34-0 unknown) (unknown) (no date) (unknown) (unknown) (no value) (units 226 33-2 unknown) (unknown) (no date) (unknown) (unknown) (no value) (units 226 35-7 unknown) (unknown) (no date) (unknown) (unknown) (no value) (units 527 97-8 unknown) Result panel 5 (unknown) (no (unknown) (unknown) (no value) (units (unk nown) date) unknown) (unknown) (no (unknown) (unknown) Date of Service: (units (unknown) date) 09/04/21 unknown) (unknown) (no (unknown) (unknown) 09/04/21 1154 (units ( unknown) date) unknown) (unknown) (no (unknown) (unknown) History + Physical (units (unknown) date) Report unknown) (unknown) (no (unknown) (unknown) [facility] 1211 (uni ts (unknown) date) [address] [place] [address] [place], unknown ) [place] [address] (unknown) (no (unknown) (unknown) (no value) (units (unk nown) date) unknown) (unknown) (no (unknown) (unknown) [id number] (units (unkno wn) date) unknown) (unknown) (no (unknown) (unknown) 81-year-old female (units (unknown) date) with a history of iron unknown ) deficiency anemia. EGD and (unknown) (no (unknown) (unknown) Age/Sex: 81 / F (units (unknown) date) unknown) (unknown) (no (unknown) (unknown) Appearance: grossly (unit s (unknown) date) normal unknown) (unknown) (no (unknown) (unknown) Assessment + Plan (units (unknown) date) unknown) (unknown) (no (unknown) (unknown) Assessment + Plan (units (unknown) date) narrative: unknown) (unknown) (no (unknown) (unknown) Cardio (units (unkno wn) date) unknown) (unknown) (no (unknown) (unknown) Chest (units (unkno wn) date) unknown) (unknown) (no (unknown) (unknown) Chest: normal (units ( unknown) date) inspection of the unknown) chest (unknown) (no (unknown) (unknown) Chief complaint: SDC (uni ts (unknown) date) unknown) (unknown) (no (unknown) (unknown) Const (units (unkno wn) date) unknown) (unknown) (no (unknown) (unknown) Critical Care time: (unit s (unknown) date) unknown) (unknown) (no (unknown) (unknown) : 1940 (units (unknown) date) Acct:[id number] unknown) (unknown) (no (unknown) (unknown) Date Patient Seen: (units (unknown) date) 09/04/21 unknown) (unknown) (no (unknown) (unknown) Diabetes (units (unkno wn) date) unknown) (unknown) (no (unknown) (unknown) Effort + Inspection: (uni ts (unknown) date) normal respiratory unknown) effort (unknown) (no (unknown) (unknown) Exam (units (unkno wn) date) unknown) (unknown) (no (unknown) (unknown) Extrem (units (unkno wn) date) unknown) (unknown) (no (unknown) (unknown) Eyes (units (unkno wn) date) unknown) (unknown) (no (unknown) (unknown) GI (units (unkno wn) date) unknown) (unknown) (no (unknown) (unknown) General: appearance (unit s (unknown) date) normal, both eyes and unknown) all related structures (unknown) (no (unknown) (unknown) General: cooperative (uni ts (unknown) date) unknown) (unknown) (no (unknown) (unknown) General: no rashes or (un its (unknown) date) lesions noted unknown) (unknown) (no (unknown) (unknown) General: normal to (units (unknown) date) inspection and no unknown) pedal edema (unknown) (no (unknown) (unknown) General: patient (units (unknown) date) alert and patient unknown) awake (unknown) (no (unknown) (unknown) H/O: hysterectomy (units (unknown) date) unknown) (unknown) (no (unknown) (unknown) HENMT (units (unkno wn) date) unknown) (unknown) (no (unknown) (unknown) Head: normal to (units (unknown) date) inspection unknown) (unknown) (no (unknown) (unknown) History of Present (units (unknown) date) Illness unknown) (unknown) (no (unknown) (unknown) Hypercholesterolemia (uni ts (unknown) date) unknown) (unknown) (no (unknown) (unknown) Hypertension (units (u nknown) date) unknown) (unknown) (no (unknown) (unknown) I reviewed my office (uni ts (unknown) date) note from June 20. unknown) No significant changes. (unknown) (no (unknown) (unknown) I spent a total of [] (un its (unknown) date) minutes of critical unknown) care time on this patient's care (unknown) (no (unknown) (unknown) Inspection: normal to (un its (unknown) date) inspection unknown) (unknown) (no (unknown) (unknown) Medical History (units (unknown) date) (Updated 09/04/21 @ unknown) 11:53 by Lori John RN) (unknown) (no (unknown) (unknown) Narrative: (units (unk nown) date) unknown) (unknown) (no (unknown) (unknown) Neck (units (unkno wn) date) unknown) (unknown) (no (unknown) (unknown) Neck: normal visual (unit s (unknown) date) inspection unknown) (unknown) (no (unknown) (unknown) Neuro (units (unkno wn) date) unknown) (unknown) (no (unknown) (unknown) Nutritional (units (un known) date) Appearance: unknown) underweight (unknown) (no (unknown) (unknown) Patient History (units (unknown) date) unknown) (unknown) (no (unknown) (unknown) Patient: (units (unkno wn) date) Tanisha Kirk unknown) MR#: [id number] (unknown) (no (unknown) (unknown) Provider: (units (unkn own) date) Stephen Paz MD unknown) (unknown) (no (unknown) (unknown) Psych (units (unkno wn) date) unknown) (unknown) (no (unknown) (unknown) ROS: Yes All systems (uni ts (unknown) date) reviewed with the unknown) patient and are negative except as (unknown) (no (unknown) (unknown) Rate: regular rate (units (unknown) date) unknown) (unknown) (no (unknown) (unknown) Resp (units (unkno wn) date) unknown) (unknown) (no (unknown) (unknown) Review of Systems (units (unknown) date) unknown) (unknown) (no (unknown) (unknown) Signed (units (unkno wn) date) By:<Electronically unknown) signed by Stephen Paz MD> (unknown) (no (unknown) (unknown) Skin (units (unkno wn) date) unknown) (unknown) (no (unknown) (unknown) Surgical History (units (unknown) date) (Updated 09/04/21 @ unknown) 11:53 by Lori Rosten, RN) (unknown) (no (unknown) (unknown) Time Patient Seen: (units (unknown) date) 11:52 unknown) (unknown) (no (unknown) (unknown) Time Spent With (units (unknown) date) Patient unknown) (unknown) (no (unknown) (unknown) colonoscopy are (units (unknown) date) pursued today. unknown) (unknown) (no (unknown) (unknown) otherwise documented (uni ts (unknown) date) unknown) (unknown) (no (unknown) (unknown) today; this time is (unit s (unknown) date) exclusive of unknown) procedural time. Result panel 6 (unknown) (no date) (unknown) (unknown) (no value) (units (un known) unknown) (unknown) (no date) (unknown) (unknown) Date of (units (unkn own) Service: unknown) 09/04/21 (unknown) (no date) (unknown) (unknown) 09/04/21 1154 (units (unknown) unknown) (unknown) (no date) (unknown) (unknown) [place] (units (unkn own) [facility] 1211 unknown) [address] [place] [id number] (unknown) (no date) (unknown) (unknown) Pre-operative (units (unknown) Note unknown) (unknown) (no date) (unknown) (unknown) (no value) (units (un known) unknown) (unknown) (no date) (unknown) (unknown) [id number] (units (unkn own) unknown) (unknown) (no date) (unknown) (unknown) ASA Class (for (units (unknown) procedural unknown) sedation): III (unknown) (no date) (unknown) (unknown) Age/Sex: 81 / (units (unknown) F unknown) (unknown) (no date) (unknown) (unknown) COVID-19 (units (unkn own) unknown) (unknown) (no date) (unknown) (unknown) COVID-19 (units (unkn own) status: unknown) Negative (unknown) (no date) (unknown) (unknown) Changes to (units (un known) H+P: No unknown) (unknown) (no date) (unknown) (unknown) Criteria for (units ( unknown) continued unknown) procedure: Possibility delay results in more complex (unknown) (no date) (unknown) (unknown) : (units (unkn own) 1940 unknown) Acct:[id number] (unknown) (no date) (unknown) (unknown) History + (units (unk nown) Physical unknown) reviewed/Exam performed by Physician: Yes (unknown) (no date) (unknown) (unknown) Interval Note (units (unknown) unknown) (unknown) (no date) (unknown) (unknown) Patient: (units (unkn own) Tanisha Kirk unknown) C MR#: [id number] (unknown) (no date) (unknown) (unknown) Pre-operative (units (unknown) Note unknown) (unknown) (no date) (unknown) (unknown) Provider: (units (unk nown) Stephen Paz unknown) (unknown) (no date) (unknown) (unknown) Result (units (unkn own) date/Date unknown) tested (Pos, Neg/Pending): 09/01/21 (unknown) (no date) (unknown) (unknown) Signed (units (unkn own) By:<Electronica unknown) lly signed by Stephen Paz MD> (unknown) (no date) (unknown) (unknown) future surgery (units (unknown) or treatment unknown) Result panel 7 (unknown) (no (unknown) (unknown) malignancy. (units (un known) date) unknown) (unknown) (no (unknown) (unknown) Duodenal mucosa with (uni ts (unknown) date) no diagnostic unknown) abnormality. 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 (unknown) (no (unknown) (unknown) Negative for (units (u nknown) date) intestinal unknown) metaplasia. (unknown) (no (unknown) (unknown) [address] [place] [address] (units (unknown) date) [place] [address], [place], unknown) MD [phone] (unknown) (no (unknown) (unknown) [facility] Cytology unknown) (unknown) (no (unknown) (unknown) MD Tristin Srinivasan MD (uni ts (unknown) date) Phone: [phone] unknown) (unknown) (no (unknown) (unknown) (no value) (units (unk nown) date) unknown) (unknown) (no (unknown) (unknown) [address] [place] [address] (units (unknown) date) unknown) (unknown) (no (unknown) (unknown) [place] [address] (unit s (unknown) date) unknown) (unknown) (no (unknown) (unknown) [facility] (units (unknown) date) unknown) (unknown) (no (unknown) (unknown) Pathology Diagnostic (uni ts (unknown) date) Report unknown) (unknown) (no (unknown) (unknown) Signed (units (unkno wn) date) unknown) (unknown) (no (unknown) (unknown) (no value) (units (unk nown) date) unknown) (unknown) (no (unknown) (unknown) * This test was (units (unknown) date) developed and its unknown) performance characteristics determined (unknown) (no (unknown) (unknown) (uni ts (unknown) date) unknown) (unknown) (no (unknown) (unknown) Performed at: 01 (uni ts (unknown) date) unknown) (unknown) (no (unknown) (unknown) . 01 (units (unkno wn) date) unknown) (unknown) (no (unknown) (unknown) . (units (unkno wn) date) unknown) (unknown) (no (unknown) (unknown) /[facility] 09/05/2021 (units (unknown) date) 1858 Local unknown) (unknown) (no (unknown) (unknown) 0.1 x 0.1 x 0.1 cm (units (unknown) date) to 0.2 x 0.2 x 0.2 cm unknown) submitted entirely in 1 (unknown) (no (unknown) (unknown) 0.1 x 0.1 x 0.1 cm (units (unknown) date) to 0.3 x 0.3 x 0.3 cm unknown) submitted entirely in 1 (unknown) (no (unknown) (unknown) 0.3 x 0.3 x 0.3 cm (units (unknown) date) submitted entirely in unknown) 1 cassette(s) (unknown) (no (unknown) (unknown) [id number], [id number], (units (unknown) date) [id number], [id number] unknown) (unknown) (no (unknown) (unknown) A. Duodenum, Biopsy: (uni ts (unknown) date) unknown) (unknown) (no (unknown) (unknown) Administration. The (unit s (unknown) date) FDA has determined unknown) that such clearance or approval is (unknown) (no (unknown) (unknown) B-C: (units (unkno wn) date) Immunohistochemical unknown) stains were performed on blocks B and C, in order (unknown) (no (unknown) (unknown) B. Antrum, Biopsy: (units (unknown) date) unknown) (unknown) (no (unknown) (unknown) C. Stomach, Polyp, (units (unknown) date) Biopsy: unknown) (unknown) (no (unknown) (unknown) [facility] 09/07/2021 (units (unknown) date) 1635 Local unknown) (unknown) (no (unknown) (unknown) CPT . (units (unkno wn) date) unknown) (unknown) (no (unknown) (unknown) Diagnosis: (units (unk nown) date) unknown) (unknown) (no (unknown) (unknown) Electronically (units (unknown) date) signed: . unknown) (unknown) (no (unknown) (unknown) Gross description: (units (unknown) date) . unknown) (unknown) (no (unknown) (unknown) Marli Hernandez, (uni ts (unknown) date) , Pathologist unknown) (unknown) (no (unknown) (unknown) [facility] Accession (units ( unknown) date) Number: [id number] unknown) (unknown) (no (unknown) (unknown) Material submitted: (unit s (unknown) date) . unknown) (unknown) (no (unknown) (unknown) Microscopic: . (units (unknown) date) unknown) (unknown) (no (unknown) (unknown) I- [phone] (units (unknown) date) unknown) (unknown) (no (unknown) (unknown) PART A: duodenum - (units (unknown) date) DUODNEUM unknown) (unknown) (no (unknown) (unknown) PART B: stomach - (units (unknown) date) ANTRUM unknown) (unknown) (no (unknown) (unknown) PART C: (units (unkno wn) date) gastrointestinal site unknown) - GASTRIC POLYP (unknown) (no (unknown) (unknown) Part A: DUODNEUM: (units (unknown) date) unknown) (unknown) (no (unknown) (unknown) Part B: ANTRUM: (units (unknown) date) unknown) (unknown) (no (unknown) (unknown) Part C: GASTRIC (units (unknown) date) POLYP: unknown) (unknown) (no (unknown) (unknown) Pathologist provided (uni ts (unknown) date) ICD-10: unknown) (unknown) (no (unknown) (unknown) R19.4, B96.81 (units ( unknown) date) unknown) (unknown) (no (unknown) (unknown) Received in formalin (uni ts (unknown) date) are 2 fragment(s) of unknown) donis, soft tissue measuring (unknown) (no (unknown) (unknown) Received in formalin (uni ts (unknown) date) are 4 fragment(s) of unknown) donis, soft tissue measuring (unknown) (no (unknown) (unknown) Received in formalin (uni ts (unknown) date) is 1 fragment(s) of unknown) donis, soft tissue measuring (unknown) (no (unknown) (unknown) Specimen Comment: A (unit s (unknown) date) courtesy copy of this unknown) report has been sent to [phone] (unknown) (no (unknown) (unknown) by [employer]. It has (units (unknown) date) not been cleared or unknown) approved by the U.S. Food and Drug (unknown) (no (unknown) (unknown) cassette(s) (units (un known) date) unknown) (unknown) (no (unknown) (unknown) not necessary. This (unit s (unknown) date) test is used for unknown) clinical purposes. It should not be (unknown) (no (unknown) (unknown) regarded as (units (un known) date) investigational or unknown) for research. (unknown) (no (unknown) (unknown) stain showed (units (u nknown) date) appropreiate unknown) activity. (unknown) (no (unknown) (unknown) stain. (units (unkno wn) date) unknown) (unknown) (no (unknown) (unknown) to evaluate for (units (unknown) date) Helicobacter unknown) organisms and are both positive. The control (unknown) (no (unknown) (unknown) Collection Date: (units (unknown) date) 09/04/21 unknown) (unknown) (no (unknown) (unknown) DD/ 0000 (uni ts (unknown) date) unknown) (unknown) (no (unknown) (unknown) Date of : (units (unknown) date) 1940 Admit unknown) Date: 09/04/21 (unknown) (no (unknown) (unknown) Dictated By: (units (u nknown) date) Marli Hernandez MD unknown) (unknown) (no (unknown) (unknown) (units (unknown) date) Dictating Dr: unknown) Marli Hernandez MD (unknown) (no (unknown) (unknown) Ordering Physician: (unit s (unknown) date) Stephen Paz MD unknown) (unknown) (no (unknown) (unknown) Patient name: (units ( unknown) date) Tanisha Kirk Gold unknown) (unknown) (no (unknown) (unknown) Signed By: (units (unk nown) date) 09/07/212006 unknown) (unknown) (no (unknown) (unknown) TD/TT: 09/07/212006 (uni ts (unknown) date) unknown) Result panel 8 (unknown) (no (unknown) (unknown) (no value) (units (unk nown) date) unknown) (unknown) (no (unknown) (unknown) Date of Service: (units (unknown) date) 09/04/21 unknown) (unknown) (no (unknown) (unknown) 09/04/21 1412 (units ( unknown) date) unknown) (unknown) (no (unknown) (unknown) EGD + (units (unkno wn) date) Colonoscopy Note unknown) (unknown) (no (unknown) (unknown) [facility] (units (unknown) date) [address] unknown) [place] [address] (unknown) (no (unknown) (unknown) (no value) (units (unk nown) date) unknown) (unknown) (no (unknown) (unknown) [id number] (units (unkno wn) date) unknown) (unknown) (no (unknown) (unknown) 1. Await (units (unkno wn) date) histopathology 2. unknown) Proceed with salvage virtual colonography ideally (unknown) (no (unknown) (unknown) 1. Duodenum: (units (u nknown) date) This is visually unknown) normal from the bulb through to the 2nd portion. (unknown) (no (unknown) (unknown) 1. Mild (units (unkno wn) date) gastropathy unknown) (unknown) (no (unknown) (unknown) 2. Gastric polyp (units (unknown) date) unknown) (unknown) (no (unknown) (unknown) 2. Stomach: No (units (unknown) date) ulcers no mass unknown) lesions no outlet obstruction. Mild gastropathy (unknown) (no (unknown) (unknown) 3. Esophagus: The (units (unknown) date) squamocolumnar unknown) junction correlated with the top of the gastric (unknown) (no (unknown) (unknown) 3. Tortuous (units (un known) date) colon unknown) (unknown) (no (unknown) (unknown) 4. Colon: This (units (unknown) date) was an unknown) exceptionally tortuous difficult exam. I did not (unknown) (no (unknown) (unknown) 4. Hemorrhoids (units (unknown) date) unknown) (unknown) (no (unknown) (unknown) 5. Mild anal (units (u nknown) date) stenosis unknown) (unknown) (no (unknown) (unknown) 6. Incomplete (units ( unknown) date) colonoscopy unknown) (unknown) (no (unknown) (unknown) 60 minutes of (units ( unknown) date) scope time was unknown) performed today. This was an exceptionally (unknown) (no (unknown) (unknown) After the risks (units (unknown) date) and benefits were unknown) explained, written and verbal informed consent (unknown) (no (unknown) (unknown) Age/Sex: 81 / F (units (unknown) date) unknown) (unknown) (no (unknown) (unknown) Bowel prep (units (unk nown) date) adequate with unknown) copious irrigation and suction (unknown) (no (unknown) (unknown) Complications: (units (unknown) date) none unknown) (unknown) (no (unknown) (unknown) : 1940 (units (unknown) date) Acct:[id number] unknown) (unknown) (no (unknown) (unknown) Date of (units (unkno wn) date) procedure: unknown) 09/04/21 (unknown) (no (unknown) (unknown) Disposition: (units (u nknown) date) PACU unknown) (unknown) (no (unknown) (unknown) EGD with (units (unkno wn) date) biopsies and an unknown) incomplete colonoscopy (unknown) (no (unknown) (unknown) Endoscopic (units (unk nown) date) diagnosis unknown) (unknown) (no (unknown) (unknown) Gastroscope and (units (unknown) date) pediatric unknown) colonoscope were utilized today. (unknown) (no (unknown) (unknown) Impression: (units (un known) date) unknown) (unknown) (no (unknown) (unknown) Indications: (units (u nknown) date) unknown) (unknown) (no (unknown) (unknown) Iron deficiency (units (unknown) date) anemia unknown) (unknown) (no (unknown) (unknown) Operative (units (unkn own) date) Date/Time/Diagnos unknown) es (unknown) (no (unknown) (unknown) Patient: (units (unkno wn) date) Tanisha Kirk Gold unknown) MR#: [id number] (unknown) (no (unknown) (unknown) Plan for (units (unkno wn) date) aftercare: unknown) (unknown) (no (unknown) (unknown) Post-op (units (unkno wn) date) diagnosis: same unknown) (unknown) (no (unknown) (unknown) Post-procedure (units (unknown) date) unknown) (unknown) (no (unknown) (unknown) Pre-op (units (unkno wn) date) diagnosis: Iron unknown) deficiency anemia (unknown) (no (unknown) (unknown) Procedure + (units (un known) date) Clinicians unknown) (unknown) (no (unknown) (unknown) Procedure Notes (units (unknown) date) unknown) (unknown) (no (unknown) (unknown) Procedure in (units (u nknown) date) detail: unknown) (unknown) (no (unknown) (unknown) Provider: (units (unkn own) date) Stephen Paz MD unknown) (unknown) (no (unknown) (unknown) Random D2 (units (unkn own) date) biopsies were unknown) acquired for sprue. (unknown) (no (unknown) (unknown) SCOAP/Timeout: (units (unknown) date) Done unknown) (unknown) (no (unknown) (unknown) Same procedure (units (unknown) date) as scheduled: Yes unknown) (unknown) (no (unknown) (unknown) Scope withdrawal (units (unknown) date) time: Not unknown) applicable (unknown) (no (unknown) (unknown) Sedation (units (unkno wn) date) minutes: 60 unknown) (unknown) (no (unknown) (unknown) Signed (units (unkno wn) date) By:<Electronicall unknown) y signed by Stephen Paz MD> (unknown) (no (unknown) (unknown) Study performed: (units (unknown) date) unknown) (unknown) (no (unknown) (unknown) Surgeon: Stephen (units (unknown) date) Brandi unknown) (unknown) (no (unknown) (unknown) The patient was (units (unknown) date) then turned unknown) around a digital rectal examination was (unknown) (no (unknown) (unknown) Time of (units (unkno wn) date) procedure: 14:05 unknown) (unknown) (no (unknown) (unknown) accomplished. (units ( unknown) date) unknown) (unknown) (no (unknown) (unknown) accomplished. (units (u nknown) date) The patient had unknown) evidence of mild to moderate anal stenosis but no (unknown) (no (unknown) (unknown) amount of looping (units (unknown) date) and we could not unknown) overcome this with abdominal pressure/patient (unknown) (no (unknown) (unknown) appreciate any (units (unknown) date) significant unknown) mucosal pathology from perhaps proximal transverse (unknown) (no (unknown) (unknown) as per nursing (units (unknown) date) documentation. unknown) The scope was introduced into the mouth through (unknown) (no (unknown) (unknown) colon all the (units ( unknown) date) way back to unknown) rectum. The patient had some mild anal stenosis and (unknown) (no (unknown) (unknown) defects or (units (unk nown) date) lesions. unknown) Retroflexed views were accomplished in the stomach. The (unknown) (no (unknown) (unknown) difficult exam (units (unknown) date) and 22 modifier unknown) is therefore requested. (unknown) (no (unknown) (unknown) duodenum. The (units ( unknown) date) scope was slowly unknown) withdrawn carefully examining the mucosa for any (unknown) (no (unknown) (unknown) folds. No (units (unk nown) date) evidence of any unknown) esophagitis. No mass lesions. The esophagus was (unknown) (no (unknown) (unknown) grade 3-4 small (units (unknown) date) hemorrhoids unknown) nonthrombosed nonbleeding. (unknown) (no (unknown) (unknown) mass lesion (units (un known) date) detected. I used unknown) the upper endoscope at 1st but we ended up in (unknown) (no (unknown) (unknown) of the LES were (units (unknown) date) otherwise unknown) unremarkable. (unknown) (no (unknown) (unknown) patient who (units (un known) date) tolerated the unknown) procedure well. (unknown) (no (unknown) (unknown) perhaps (units (unkno wn) date) somewhere close unknown) to hepatic flexure. Again there was an incredible (unknown) (no (unknown) (unknown) position (units (unkno wn) date) changes/use of unknown) the stiffening agent. Procedure time was prolonged at (unknown) (no (unknown) (unknown) scope was (units (unkn own) date) withdrawn the unknown) colon decompressed the scope then removed from the (unknown) (no (unknown) (unknown) stomach was (units (un known) date) decompressed, the unknown) scope was then removed from the patient who (unknown) (no (unknown) (unknown) the bite block (units ( unknown) date) and advanced unknown) under direct visualization to the 2nd portion of the (unknown) (no (unknown) (unknown) the left lateral (units (unknown) date) decubitus unknown) position. Conscious sedation medication was applied (unknown) (no (unknown) (unknown) the scope out (units ( unknown) date) for pediatric unknown) colonoscope and with some difficulty we got to (unknown) (no (unknown) (unknown) this point and I (units (unknown) date) therefore elected unknown) to abandon attempted cecal navigation. The (unknown) (no (unknown) (unknown) tolerated the (units ( unknown) date) procedure well. unknown) (unknown) (no (unknown) (unknown) tomorrow (units (unkno wn) date) morning. 3. unknown) Patient should remain on clear liquids until this is (unknown) (no (unknown) (unknown) transverse colon (units (unknown) date) and could not unknown) advance further secondary to looping. I swabbed (unknown) (no (unknown) (unknown) unremarkable. (units ( unknown) date) unknown) (unknown) (no (unknown) (unknown) was a diminutive (units (unknown) date) polyp in the body unknown) removed with cold forceps. Retroflexed views (unknown) (no (unknown) (unknown) was appreciated (units (unknown) date) and biopsies were unknown) acquired for exclusion of Helicobacter. There (unknown) (no (unknown) (unknown) was obtained. (units ( unknown) date) The patient was unknown) brought into the procedure room and placed into Social History date description facility (no date) Never smoked tobacco ([facility] Vital Signs date measurement value units +0000 BMI BMI 19.7 kg/m2 [id number]+0000 BP_diastolic BP_diastolic 55 mm[H g] [id number]+0000 BP_systolic BP_systolic 128 mm[Hg] [id number]+0000 heart_rate heart_rate 76 /min [id number]+0000 height_metric height_metric 157.48 cm [id number]+0000 height_standard height_standard 62 in [id number]+0000 respiration_rate respiration_rate 18 /min [id number]+0000 temperature_metric temperature_metric 36.78 C +0000 temperature_standard temperature_standard 9 8.2 F [id number]+0000 weight_metric weight_metric 48.98 kg [id number]+0000 weight_standard weight_standard 107.98 lb
--- NOTE | 2021-10-03 10:06 | ED Physician Documentation ---
History of Present Illness - Stated complaint Stated Complaint: COLLAPSED - History obtained from History obtained from: Family - Additonal information Additional information: Patient is a 81-year-old female presenting to the emergency department with report of syncope and collapse earlier today. Accompanied by [id number] who is present at bedside. Patient tested positive for COVID approximately 1 week ago. [id number] who reports that patient has had almost no p.o. intake since that time. Reports 3 total episodes of collapse with the last one this morning in which the patient fell into a bookcase. Daughter is uncertain whether or not the patient uses blood thinning medication however neither anticoagulation or antiplatelet agents are identified in the patient's current medications list. Past medical significant for diabetes, hypertension, dementia, iron deficiency anemia, Review of Systems Unable to obtain: Dementia PD PAST MEDICAL HISTORY - Past Medical History Cardiovascular: Hypertension Respiratory: Shortness of breath Neuro: Dementia Endocrine/Autoimmune: Type 2 diabetes GI: None BOY'S ADVISER: Other () : Incontinence HEENT: Chronic vision loss, Macular degeneration Psych: None Musculoskeletal: Chronic back pain Derm: None - Past Surgical History /BOY'S ADVISER: section, Tubal ligation HEENT: Cataracts - Present Medications Home Medications: Ambulatory Orders Medication Instructions Recorded Confirmed Lovastatin 20 mg PO QPM 01/21/21 05/03/21 Metoprolol Tartrate [Lopressor] 12.5 mg PO BID 01/21/21 05/03/21 hydroCHLOROthiazide [Hydrodiuril] 25 mg PO DAILY 01/21/21 05/03/21 metFORMIN [Glucophage] 1,000 mg PO BIDWM 01/21/21 05/03/21 Ferrous Gluconate 240 mg PO DAILY #30 tablet 01/22/21 05/03/21 Ondansetron Odt [Zofran] 4 mg TL Q6H PRN #10 tablet 10/03/21 - Allergies Allergies/Adverse Reactions: Allergies Allergy/AdvReac Type Severity Reaction Status Date / Time No Known Drug Allergies Allergy Verified 01/21/21 13:13 - Social History Does the pt smoke?: No Smoking Status: Never smoker - POLST Patient has POLST: No POLST Status: Full Code PD ED PE NORMAL - Vitals Vital signs reviewed: Yes - General General: No acute distress, Other (Patient is elderly and cachectic) - HEENT HEENT: Atraumatic, PERRL - Neck Neck: Supple, no meningeal sign - Cardiac Cardiac: RRR, No gallop - Respiratory Respiratory: No respiratory distress, Clear bilaterally - Abdomen Abdomen: Normal bowel sounds, Non tender - Female Female : Deferred - Rectal Rectal: Deferred Results - Vitals Vitals: Vital Signs - 24 hr 10/03/21 10/03/21 10/03/21 09:51 11:11 12:06 Temperature 36.8 C Heart Rate 86 98 94 Respiratory 16 19 16 Rate Blood Pressure 150/90 H 141/101 H 134/66 H O2 Saturation 95 100 99 10/03/21 10/03/21 10/03/21 12:30 13:00 13:30 Temperature Heart Rate 85 78 78 Respiratory 14 12 12 Rate Blood Pressure 136/56 H 124/56 L 120/55 L O2 Saturation 99 99 100 10/03/21 10/03/21 10/03/21 14:00 15:00 15:30 Temperature Heart Rate 80 84 82 Respiratory 14 16 16 Rate Blood Pressure 122/52 L 132/68 H 130/70 O2 Saturation 100 100 98 10/03/21 10/03/21 10/03/21 16:00 16:30 17:30 Temperature Heart Rate 83 77 88 Respiratory 19 16 16 Rate Blood Pressure 130/58 L 130/65 130/63 O2 Saturation 97 100 100 10/03/21 10/03/21 18:00 18:30 Temperature Heart Rate 80 88 Respiratory 13 18 Rate Blood Pressure 121/53 L 133/59 H O2 Saturation 99 98 Oxygen O2 Source Room air - EKG (time done) 1012 Rate: Rate (enter#) (87) Rhythm: NSR [place]: Normal Intervals: Normal HI QRS: Normal Ischemia: Non specific changes Computer interpretation: Agree with computer - Labs Labs: Laboratory Tests 10/03/21 10/03/21 10/03/21 10:25 10:25 10:25 WBC 9.0 RBC 3.40 L Hgb 7.7 L Hct 26.7 L MCV 78.5 L MCH 22.6 L MCHC 28.8 L RDW 16.0 H Plt Count 356 MPV 9.3 Neut # (Auto) 7.9 H Lymph # (Auto) 0.5 L [place] # (Auto) 0.5 Eos # (Auto) 0.0 Baso # (Auto) 0.0 Absolute Nucleated RBC 0.00 Nucleated RBC % 0.0 PT 15.9 H INR 1.4 H Sodium 133 L Potassium 3.6 Chloride 90 L Carbon Dioxide 24 Anion Gap 19.0 H BUN 43 H Creatinine 1.1 H Estimated GFR (MDRD) 48 L Glucose 185 H Lactic Acid Calcium 9.8 Magnesium 1.9 Total Bilirubin 1.4 H AST 23 ALT 17 Alkaline Phosphatase 57 Total Creatine Kinase 112 Troponin I High Sens Total Protein 7.2 Albumin 4.1 Globulin 3.1 Albumin/Globulin Ratio 1.3 Lipase 31 Urine Color Urine Clarity Urine pH Ur Specific [place] Urine Protein Urine Glucose (UA) Urine Ketones Urine Occult Blood Urine Nitrite Urine Bilirubin Urine Urobilinogen Ur Leukocyte Esterase Ur Microscopic Review Urine Culture Comments SARS-CoV-2 (PCR) 10/03/21 10/03/21 10/03/21 10:25 10:25 10:25 WBC RBC Hgb Hct MCV MCH MCHC RDW Plt Count MPV Neut # (Auto) Lymph # (Auto) [place] # (Auto) Eos # (Auto) Baso # (Auto) Absolute Nucleated RBC Nucleated RBC % PT INR Sodium Potassium Chloride Carbon Dioxide Anion Gap BUN Creatinine Estimated GFR (MDRD) Glucose Lactic Acid 1.2 Calcium Magnesium Total Bilirubin AST ALT Alkaline Phosphatase Total Creatine Kinase Troponin I High Sens 30.7 H* Total Protein Albumin Globulin Albumin/Globulin Ratio Lipase Urine Color Urine Clarity Urine pH Ur Specific [place] Urine Protein Urine Glucose (UA) Urine Ketones Urine Occult Blood Urine Nitrite Urine Bilirubin Urine Urobilinogen Ur Leukocyte Esterase Ur Microscopic Review Urine Culture Comments SARS-CoV-2 (PCR) DETECTED A 10/03/21 10/03/21 10/03/21 12:01 15:20 17:02 WBC RBC Hgb Hct MCV MCH MCHC RDW Plt Count MPV Neut # (Auto) Lymph # (Auto) [place] # (Auto) Eos # (Auto) Baso # (Auto) Absolute Nucleated RBC Nucleated RBC % PT INR Sodium Potassium Chloride Carbon Dioxide Anion Gap BUN Creatinine Estimated GFR (MDRD) Glucose Lactic Acid Calcium Magnesium Total Bilirubin AST ALT Alkaline Phosphatase Total Creatine Kinase Troponin I High Sens 31.4 H* 29.6 H* Total Protein Albumin Globulin Albumin/Globulin Ratio Lipase Urine Color YELLOW Urine Clarity CLEAR Urine pH 5.5 Ur Specific [place] 1.025 Urine Protein NEGATIVE Urine Glucose (UA) NEGATIVE Urine Ketones 40 H Urine Occult Blood NEGATIVE Urine Nitrite NEGATIVE Urine Bilirubin NEGATIVE Urine Urobilinogen 0.2 (NORMAL) Ur Leukocyte Esterase NEGATIVE Ur Microscopic Review NOT INDICATED Urine Culture Comments NOT INDICATED SARS-CoV-2 (PCR) PD MEDICAL DECISION MAKING - ED course Complexity details: reviewed old records, reviewed results, re-evaluated patient, considered differential, d/w patient, d/w family ED course: Patient is 81-year-old female presenting to the emergency department with generalized weakness, decreased appetite and 3 falls at home in the setting of recent diagnosis of COVID-19. Afebrile, hemodynamically stable on arrival to the emergency department. Clear aeration in all lung workman with no respiratory distress. Patient does seem physically deconditioned and is quite thin and frail. EKG obtained was negative for indications of acute cardiac ischemia or dysrhythmia. Patient denied any chest pain or shortness of breath while in the emergency department. She did have a mild low level elevation of troponin which on serial evaluations was unchanged. Chart review does demonstrate a history of cardiomyopathy as well as a history of elevated troponin. I believe that this is likely a chronic finding rather than something that indicates acute cardiac ischemia. Comprehensive labs were obtained and were generally nonactionable. Urine analysis negative for indications of infection. She was given medication for nausea, IV hydration. She was able to tolerate p.o. food and fluid in the emergency department. She passed an ambulatory trial with the assistance of walker. I had a long and detailed discussion with her son who seems to be her primary manufacturing controls engineer and who was present at bedside about all of her findings. I did encourage careful follow-up with primary care concerning her many issues and I encouraged the family to have a discussion about escalating the level of care she is currently receiving, be this with home health aides or the consideration of transfer to a [facility] facility. At this time I will discharge for follow-up with outpatient resources. Otherwise clear return precautions and follow-up instructions given prior to discharge. Departure - Departure Disposition: 01 Home, Self Care Clinical Impression: COVID-19, Weakness, Decreased appetite, Fall, Closed head injury Prescriptions: Ondansetron Odt [Zofran] 4 mg TL Q6H PRN #10 tablet PRN Reason: Nausea / Vomiting Comments: Thank you for allowing us to care for you today at [facility]. The testing performed in the emergency department including your EKG, CT head, lab work were all relatively reassuring. You did have a small elevation inAn enzyme in your blood work known as a troponin which can sometimes indicate heart injury however this can also be slightly elevated in the setting of known coronary artery disease such as which you have and we monitored carefully for several hours while in the emergency department and there was no appreciable change. You are given IV hydration as well as medication for nausea here in the emergency department. It is extremely important however that you stay well-hydrated at home. I will be discharging with some medication you can take for any ongoing nausea but I do recommend regular small sips of Sugar and/or electrolyte containing fluids such as Gatorade or not artificially sweetened fruit juices at home. Ensure protein shakes and Premier protein shakes Are also excellent sources for nutrition and hydration. I want you to use your walker at all times while at home. This is to help prevent further falls. I want you to call your primary care doctor first thing in the morning in order to make an appointment for medical recheck. If it anytime you have any new or worsening symptoms please not hesitate to jacquie yeung.
[2021-10-03] MEDS ORDERED: SODIUM CHLORIDE 0.9% 1,000 ML IV STA (10:08)
[2021-10-03] MEDS ORDERED: METOCLOPRAMIDE 10 MG/2 ML VIAL IVP STA (10:08)
[2021-10-03 10:32] LABS: BASOPHILS % (AUTO) 0.1 %; HCT - HEMATOCRIT 26.7 % (37.0-47.0); HGB - HEMOGLOBIN 7.7 g/dL (12.0-16.0); LYMPHOCYTES # (AUTO) 0.5 10^3/uL (1.5-3.5); MEAN CORPUSCULAR HEMOGLOBIN 22.6 pg (27.0-31.0); MEAN CORPUSCULAR HGB CONC 28.8 g/dL (32.0-36.0); MEAN CORPUSCULAR VOLUME 78.5 fL (81.0-99.0); MEAN PLATELET VOLUME 9.3 fL (7.9-10.8); MONOCYTES # (AUTO) 0.5 10^3/uL (0.0-1.0); NEUTROPHILS # (AUTO) 7.9 10^3/uL (1.5-6.6); NEUTROPHILS % (AUTO) 88.3 %; PLT - PLATELET COUNT 356 10^3/uL (130-450)
[2021-10-03 10:39] LABS: INR 1.4 (0.8-1.2); PT - PROTHROMBIN TIME 15.9 secs (9.9-12.6)
[2021-10-03 10:46] LABS: ALBUMIN 4.1 g/dL (3.2-5.5); ALBUMIN/GLOBULIN RATIO 1.3 (1.0-2.2); BILIRUBIN,TOTAL 1.4 mg/dL (0.2-1.0); CALCIUM 9.8 mg/dL (8.5-10.3); CREATININE 1.1 mg/dL (0.4-1.0); MAGNESIUM 1.9 mg/dL (1.7-2.8); POTASSIUM 3.6 mmol/L (3.5-5.0); TOTAL PROTEIN 7.2 g/dL (6.7-8.2)
--- NOTE | 2021-10-03 10:58 | CT Report ---
PROCEDURE: HEAD WO INDICATIONS: Fall, closed head injury TECHNIQUE: Noncontrast 4.5 mm thick angled axial sections acquired from the foramen magnum to the vertex. For r adiation dose reduction, the following was used: automated exposure control, adjustment of mA and/or kV according to patient size. COMPARISON: None. FINDINGS: Image quality: Excellent. CSF spaces: Basal cisterns are patent. No extra-axial fluid collections. Mild to moderate generaliz ed volume loss. Brain: Watson-white differentiation is grossly maintained. No acute intracranial hemorrhage or extra-ax ial collections. Mild periventricular frontal hypoattenuation likely sequela of small vessel disease. Falx calcifications Skull and face: Calvarium and visualized facial bones are intact, without suspicious lesions. Lens replacement. Sinuses: Mild mucosal thickening. IMPRESSION: No acute intracranial abnormality. Likely chronic findings as above Reviewed by: Bernardo Hood MD on 10/03/2021 10:56 AM PDT Approved by: Bernardo Hood MD on 10/03/2021 10:56 AM PDT Station ID: [id number]
--- NOTE | 2021-10-03 11:16 | XRAY Report ---
PROCEDURE: Chest 1 View X-Ray INDICATIONS: chest pain TECHNIQUE: One view of the chest was acquired. COMPARISON: None FINDINGS: Surgical changes and devices: None. Lungs and pleura: No pleural effusions or pneumothorax. Lungs are clear. Mediastinum: Mediastinal contours appear normal. Heart size is normal. Bones and chest wall: No suspicious bony lesions. Overlying soft tissues appear unremarkable. IMPRESSION: No acute cardiothoracic abnormality. Reviewed by: Bernardo Hood MD on 10/03/2021 11:14 AM PDT Approved by: Bernardo Hood MD on 10/03/2021 11:14 AM PDT Station ID: [id number]
[2021-10-03] MEDS ORDERED: MORPHINE 2 MG/ML CARPUJECT IVP STA (11:55)
[2021-10-03 17:07] LABS: GLUCOSE, URINE (UA) NEGATIVE (NEGATIVE); KETONES,URINE (UA) 40 mg/dL (NEGATIVE); LEUKOCYTE ESTERASE, URINE NEGATIVE (NEGATIVE); NITRITE,URINE NEGATIVE (NEGATIVE); OCCULT BLOOD,URINE NEGATIVE (NEGATIVE); PH,URINE 5.5 PH (5.0-7.5); PROTEIN,URINE NEGATIVE (NEGATIVE); UROBILINOGEN,URINE 0.2 (NORMAL) E.U./dL (NORMAL)
[2021-10-03 17:12] LABS: BILIRUBIN,URINE NEGATIVE (NEGATIVE); CLARITY,URINE CLEAR (CLEAR); ICTOTEST,URINE NEGATIVE
[2021-10-03 18:32] VITALS: BP 133/59
== END 2021-10-03 19:28 | disposition home or self-care (01) ==
LOC: ED 09:49
DX: U07.1 COVID-19 (principal); S09.90XA Unspecified injury of head, initial encounter; W19.XXXA Unspecified fall, initial encounter; Z91.81 History of falling; I10 Essential (primary) hypertension; E11.9 Type 2 diabetes mellitus without complications; Z79.84 Long term (current) use of oral hypoglycemic drugs
CPT/HCPCS: 36415; 70450; 71045; 80053; 81003; 82550; 83605; 83690; 83735; 84484; 85025; 85610; 87635; 93005; 96374; 96375; 99281; 99284; J2765; 81001; 87086

== ENCOUNTER 2021-10-27 21:06 | Emergency (ER) | payer MEDICARE ==
--- OUTSIDE RECORDS SUMMARY | 2021-10-27 21:17 | EXTERNAL MEDICAL SUMMARY RPT | Continuity of Care Document ---
:1940 Author Organization [facility] Address [address] [place] [address] Phone Allergies and Intolerances date description facility type (no date) No Known Drug Allergies [facility] (unkn own) Encounters No information. Functional Status No information. Immunizations No information. Medications date description facility [id number] Lovastatin 20 MG Oral Tablet [facility] [id number]+0000 Hydrochlorothiazide 25 MG Oral Tablet [facility] [id number]+0000 Metformin hydrochloride 1000 MG Oral T ablet [facility] [id number]+0000 Metoprolol Tartrate 25 MG Oral Tablet [facility] Problems No information. Procedures date description facility [id number] [facility] [id number]+0000 [facility] Results/Labs test date author facility value unit interpret ation Result panel 1 (unknown) (no (unknown) (unknown) (no value) (units (unk nown) date) unknown) (unknown) (no (unknown) (unknown) [place], [place] (units ( unknown) date) [address] unknown) (unknown) (no (unknown) (unknown) Draft (units (unkno wn) date) unknown) (unknown) (no (unknown) (unknown) [facility] (units (unknown) date) unknown) (unknown) (no (unknown) (unknown) Nurse Office (units (u nknown) date) Visit unknown) (unknown) (no (unknown) (unknown) (no value) (units (unk nown) date) unknown) (unknown) (no (unknown) (unknown) COVID-19 (units (u nknown) date) unknown) (unknown) (no (unknown) (unknown) [id number] (units (unkno wn) date) unknown) (unknown) (no (unknown) (unknown) 09/01/21 (units (unkno wn) date) unknown) (unknown) (no (unknown) (unknown) Age/Sex: 81 / F (units (unknown) date) Date of unknown) Service: (unknown) (no (unknown) (unknown) Attending Dr: (units ( unknown) date) Lobito Oconnor MD unknown) (unknown) (no (unknown) (unknown) : 1940 (units (unknown) date) Acct:[id number] unknown) (unknown) (no (unknown) (unknown) Dept at (units (unkno wn) date) . 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 Result panel 2 (unknown) (no date) (unknown) (unknown) Negative (units (unkn own) unknown) Result panel 3 (unknown) (no (unknown) (unknown) (no value) (units (unk nown) date) unknown) (unknown) (no (unknown) (unknown) 09/01/21 1322 (units ( unknown) date) unknown) (unknown) (no (unknown) (unknown) [place], [place] (units ( unknown) date) [address] unknown) (unknown) (no (unknown) (unknown) [facility] (units (unknown) date) unknown) (unknown) (no (unknown) (unknown) Nurse Office (units (u nknown) date) Visit unknown) (unknown) (no (unknown) (unknown) Signed (units (unkno wn) date) unknown) (unknown) (no (unknown) (unknown) (no value) (units (unk nown) date) unknown) (unknown) (no (unknown) (unknown) COVID-19 (units (u nknown) date) unknown) (unknown) (no (unknown) (unknown) [id number] (units (unkno wn) date) unknown) (unknown) (no (unknown) (unknown) 09/01/21 (units (unkno wn) date) unknown) (unknown) (no (unknown) (unknown) Age/Sex: 81 / F (units (unknown) date) Date of unknown) Service: (unknown) (no (unknown) (unknown) Attending Dr: (units ( unknown) date) Lobito Oconnor MD unknown) (unknown) (no (unknown) (unknown) : 1940 (units (unknown) date) Acct:[id number] unknown) (unknown) (no (unknown) (unknown) Dept at [...] unknown) effort is made to edit content, industrial relations specialist errors Result panel 4 (unknown) (no date) [...] date) Report unknown) (unknown) (no (unknown) (unknown) [facility] (uni ts (unknown) date) [address] [place] [address] [place], unknown ) [place] [address] (unknown) (no (unknown) (unknown) (no value) (units (unk nown) date) unknown) (unknown) (no (unknown) (unknown) [id number] (units (unkno wn) date) unknown) (unknown) (no [...] (unknown) (unknown) : 1940 (units (unknown) date) Acct:[id number] unknown) (unknown) (no (unknown) (unknown) Date Patient [...] (unknown) unknown) (unknown) (no date) (unknown) (unknown) [facility] (units (unkn own) [facility] [address] unknown) [address] [place] [id number] (unknown) (no date) (unknown) (unknown) Pre-operative (units (unknown) Note unknown) (unknown) (no date) (unknown) (unknown) (no value) (units (un known) unknown) (unknown) (no date) (unknown) (unknown) [id number] (units (unkn own) unknown) (unknown) (no date) [...] (unknown) : (units (unkn own) 1940 unknown) Acct:[id number] (unknown) (no date) (unknown) (unknown) History + [...] unknown) metaplasia. (unknown) (no (unknown) (unknown) [address] [place] [address] (units (unknown) date) [place] [address], [place], unknown) [place] [phone] (unknown) (no (unknown) (unknown) [facility] (units (unknown) date) Cytology unknown) (unknown) (no (unknown) (unknown) MD Tristin Srinivasan MD (uni ts (unknown) date) Phone: [phone] unknown) (unknown) (no (unknown) (unknown) (no value) (units (unk nown) date) unknown) (unknown) (no (unknown) (unknown) [address] [place] [address] (units (unknown) date) unknown) (unknown) (no (unknown) (unknown) [place] [address] (unit s (unknown) date) unknown) (unknown) (no (unknown) (unknown) [facility] (units (unknown) date) unknown) (unknown) (no [...] unknown) 1 cassette(s) (unknown) (no (unknown) (unknown) [id number], [id number], (units (unknown) date) [id number], [id number] unknown) (unknown) (no (unknown) (unknown) A. Duodenum, [...] date) Biopsy: unknown) (unknown) (no (unknown) (unknown) [facility] 09/07/2021 (units (unknown) date) 1635 Local unknown) [...] , Pathologist unknown) (unknown) (no (unknown) (unknown) [facility] Accession (units ( unknown) date) Number: [id number] unknown) (unknown) (no (unknown) (unknown) Material submitted: (unit s (unknown) date) . unknown) (unknown) (no (unknown) (unknown) Microscopic: . (units (unknown) date) unknown) (unknown) (no (unknown) (unknown) I- [id number] (units (unknown) date) unknown) (unknown) (no (unknown) [...] this unknown) report has been sent to [phone] (unknown) (no (unknown) (unknown) by [employer]. It has (units (unknown) date) not been [...] Colonoscopy Note unknown) (unknown) (no (unknown) (unknown) [facility] (units (unknown) date) [address] unknown) [place] [address] (unknown) (no (unknown) (unknown) (no value) (units (unk nown) date) unknown) (unknown) (no (unknown) (unknown) [id number] (units (unkno wn) date) unknown) (unknown) (no [...] (unknown) (unknown) : 1940 (units (unknown) date) Acct:[id number] unknown) (unknown) (no (unknown) (unknown) Date of [...] into the procedure room and placed into Result panel 9 (unknown) (no (unknown) (unknown) (no value) (units (unk nown) date) unknown) (unknown) (no (unknown) (unknown) (no value) (units (unk nown) date) unknown) (unknown) (no (unknown) (unknown) [place] [address] (unit s (unknown) date) unknown) (unknown) (no (unknown) (unknown) Draft (units (unkno wn) date) unknown) (unknown) (no (unknown) (unknown) [facility] (units (unknown) date) unknown) (unknown) (no (unknown) (unknown) Surgery Office Visit (uni ts (unknown) date) unknown) (unknown) (no (unknown) (unknown) (no value) (units (unk nown) date) unknown) (unknown) (no (unknown) (unknown) [id number] (units (unkno wn) date) unknown) (unknown) (no (unknown) (unknown) 10/09/21 (units (unkno wn) date) unknown) (unknown) (no (unknown) (unknown) Abdomen is soft and (unit s (unknown) date) moderately distended unknown) (unknown) (no (unknown) (unknown) Age/Sex: 81 / F (units (unknown) date) Date of Service: unknown) (unknown) (no (unknown) (unknown) Allergies (units (unkn own) date) unknown) (unknown) (no (unknown) (unknown) Attending Dr: Gage Cooper (uni ts (unknown) date) Mykel DALY unknown) (unknown) (no (unknown) (unknown) Chief Complaint (units (unknown) date) unknown) (unknown) (no (unknown) (unknown) Chief Complaint: (units (unknown) date) Anemia and abnormal unknown) imaging of the colon (unknown) (no (unknown) (unknown) : 1940 (units (unknown) date) Acct:[id number] unknown) (unknown) (no (unknown) (unknown) Dept at (units (unkno wn) date) . unknown) (unknown) (no (unknown) (unknown) Details: (units (unkno wn) date) unknown) (unknown) (no (unknown) (unknown) Diabetes (units (unkno wn) date) unknown) (unknown) (no (unknown) (unknown) Documented By: (units (unknown) date) Gage Hogue MD unknown) 10/09/21 1025 (unknown) (no (unknown) (unknown) Exam (units (unkno wn) date) unknown) (unknown) (no (unknown) (unknown) Exam Narrative (units (unknown) date) unknown) (unknown) (no (unknown) (unknown) Exam Narrative: (units (unknown) date) unknown) (unknown) (no (unknown) (unknown) Frail woman in a (units (unknown) date) wheelchair unknown) (unknown) (no (unknown) (unknown) H/O: hysterectomy (units (unknown) date) unknown) (unknown) (no (unknown) (unknown) HPI (units (unkno wn) date) unknown) (unknown) (no (unknown) (unknown) Hypercholesterolemia (uni ts (unknown) date) unknown) (unknown) (no (unknown) (unknown) Hypertension (units (u nknown) date) unknown) (unknown) (no (unknown) (unknown) Intake (units (unkno wn) date) unknown) (unknown) (no (unknown) (unknown) Suraj. (units (unkno wn) date) unknown) (unknown) (no (unknown) (unknown) Loc: [facility] (units (unkno wn) date) unknown) (unknown) (no (unknown) (unknown) Tanisha is a (units (u nknown) date) 81-year-old woman who unknown) has been treated for anemia since last (unknown) (no (unknown) (unknown) Medical History (units (unknown) date) (Updated 09/04/21 @ unknown) 11:53 by Lori John RN) (unknown) (no (unknown) (unknown) No Known Drug (units ( unknown) date) Allergies Allergy unknown) (Verified 09/04/21 11:54) (unknown) (no (unknown) (unknown) January when she (units (unknown) date) received a blood unknown) transfusion. She had an EGD and attempted (unknown) (no (unknown) (unknown) PFSH (units (unkno wn) date) unknown) (unknown) (no (unknown) (unknown) Patient: (units (unkno wn) date) Tanisha Kirk unknown) MR#: [id number] (unknown) (no (unknown) (unknown) Reason For Visit (units (unknown) date) unknown) (unknown) (no (unknown) (unknown) She is rather frail (unit s (unknown) date) and uses a wheelchair. unknown ) She is accompanied today by her son (unknown) (no (unknown) (unknown) Signed By: (units (unk nown) date) unknown) (unknown) (no (unknown) (unknown) Smoking Status: (units (unknown) date) Never smoker unknown) (unknown) (no (unknown) (unknown) Smoking Status: Never (un its (unknown) date) smoker unknown) (unknown) (no (unknown) (unknown) Social History (units (unknown) date) unknown) (unknown) (no (unknown) (unknown) Surgical History (units (unknown) date) (Updated 09/04/21 @ unknown) 11:53 by Lori John RN) (unknown) (no (unknown) (unknown) There is a low (units (unknown) date) midline scar from her unknown) section (unknown) (no (unknown) (unknown) This note may have (units (unknown) date) been all or partially unknown) generated using voice recognition (unknown) (no (unknown) (unknown) Tobacco Status (units (unknown) date) unknown) (unknown) (no (unknown) (unknown) 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 (unknown) (no (unknown) (unknown) have occurred. If (units (unknown) date) there are any unknown) questions, please contact the Medical Records (unknown) (no (unknown) (unknown) household members: (units (unknown) date) family unknown) (unknown) (no (unknown) (unknown) may occur. (units (unk nown) date) Occasional wrong-word unknown) or 'sound-alike' substitutions may have (unknown) (no (unknown) (unknown) occurred due to the (unit s (unknown) date) inherent limitations unknown) of voice recognition software. Please (unknown) (no (unknown) (unknown) read the note (units ( unknown) date) carefully and unknown) recognize, using context, where these substitutions (unknown) (no (unknown) (unknown) software. Although (units (unknown) date) every effort is made unknown) to edit content, industrial relations specialist errors (unknown) (no (unknown) (unknown) tortuous colon. She (unit s (unknown) date) then had a virtual unknown) colonoscopy in [place] which I do not Result panel 10 (unknown) (no (unknown) (unknown) (no value) (units (unk nown) date) unknown) (unknown) (no (unknown) (unknown) (no value) (units (unk nown) date) unknown) (unknown) (no (unknown) (unknown) (no value) (units (unk nown) date) unknown) (unknown) (no (unknown) (unknown) 10/09/21 (units (unkno wn) date) unknown) (unknown) (no (unknown) (unknown) 10:37 (units (unkno wn) date) unknown) (unknown) (no (unknown) (unknown) [place] [address] (unit s (unknown) date) unknown) (unknown) (no (unknown) (unknown) Draft (units (unkno wn) date) unknown) (unknown) (no (unknown) (unknown) [facility] (units (unknown) date) unknown) (unknown) (no (unknown) (unknown) Surgery Office Visit (uni ts (unknown) date) unknown) (unknown) (no (unknown) (unknown) (no value) (units (unk nown) date) unknown) (unknown) (no (unknown) (unknown) [id number] (units (unkno wn) date) unknown) (unknown) (no (unknown) (unknown) 10/09/21 (units (unkno wn) date) unknown) (unknown) (no (unknown) (unknown) Abdomen is soft and (unit s (unknown) date) moderately distended unknown) (unknown) (no (unknown) (unknown) Age/Sex: 81 / F (units (unknown) date) Date of Service: unknown) (unknown) (no (unknown) (unknown) Allergies (units (unkn own) date) unknown) (unknown) (no (unknown) (unknown) Attending Dr: Gage Cooper (uni ts (unknown) date) Mykel DALY unknown) (unknown) (no (unknown) (unknown) BMI 19.7 (units (un known) date) unknown) (unknown) (no (unknown) (unknown) BP 110/66 (units (u nknown) date) unknown) (unknown) (no (unknown) (unknown) Blood Pressure (units (unknown) date) Location Lt unknown) brachial (unknown) (no (unknown) (unknown) Chief Complaint (units (unknown) date) unknown) (unknown) (no (unknown) (unknown) Chief Complaint: (units (unknown) date) Anemia and abnormal unknown) imaging of the colon (unknown) (no (unknown) (unknown) : 1940 (units (unknown) date) Acct:[id number] unknown) (unknown) (no (unknown) (unknown) Dept at (units (unkno wn) date) . unknown) (unknown) (no (unknown) (unknown) Details: (units (unkno wn) date) unknown) (unknown) (no (unknown) (unknown) Diabetes (units (unkno wn) date) unknown) (unknown) (no (unknown) (unknown) Documented By: (units (unknown) date) Gage Hogue MD unknown) 10/09/21 1025 (unknown) (no (unknown) (unknown) Exam (units (unkno wn) date) unknown) (unknown) (no (unknown) (unknown) Exam Narrative (units (unknown) date) unknown) (unknown) (no (unknown) (unknown) Exam Narrative: (units (unknown) date) unknown) (unknown) (no (unknown) (unknown) Frail woman in a (units (unknown) date) wheelchair unknown) (unknown) (no (unknown) (unknown) : 2 (units (unk nown) date) unknown) (unknown) (no (unknown) (unknown) H/O: hysterectomy (units (unknown) date) unknown) (unknown) (no (unknown) (unknown) HPI (units (unkno wn) date) unknown) (unknown) (no (unknown) (unknown) Height 5 ft 2 in (unit s (unknown) date) unknown) (unknown) (no (unknown) (unknown) Hypercholesterolemia (uni ts (unknown) date) unknown) (unknown) (no (unknown) (unknown) Hypertension (units (u nknown) date) unknown) (unknown) (no (unknown) (unknown) Intake (units (unkno wn) date) unknown) (unknown) (no (unknown) (unknown) Is patient in pain?: (uni ts (unknown) date) No unknown) (unknown) (no (unknown) (unknown) Suraj. (units (unkno wn) date) unknown) (unknown) (no (unknown) (unknown) Loc: [facility] (units (unkno wn) date) unknown) (unknown) (no (unknown) (unknown) Tanisha is a (units (u nknown) date) 81-year-old woman who unknown) has been treated for anemia since last (unknown) (no (unknown) (unknown) Medical History (units (unknown) date) (Reviewed 10/09/21 @ unknown) 10:37 by Emely Guerin MA) (unknown) (no (unknown) (unknown) Medications (units (un known) date) unknown) (unknown) (no (unknown) (unknown) No Known Drug (units ( unknown) date) Allergies Allergy unknown) (Verified 10/09/21 10:36) (unknown) (no (unknown) (unknown) January when she (units (unknown) date) received a blood unknown) transfusion. 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 (units (unknown) date) History unknown) (unknown) (no (unknown) (unknown) PFSH (units (unkno wn) date) unknown) (unknown) (no (unknown) (unknown) Pain Scale (units (unk nown) date) unknown) (unknown) (no (unknown) (unknown) Para: 2 (units (unkno wn) date) unknown) (unknown) (no (unknown) (unknown) Patient: (units (unkno wn) date) Tanisha Kirk unknown) MR#: [id number] (unknown) (no (unknown) (unknown) Pulse 64 (units (un known) date) unknown) (unknown) (no (unknown) (unknown) Pulse Source (units (u nknown) date) Monitor unknown) (unknown) (no (unknown) (unknown) Reason For Visit (units (unknown) date) unknown) (unknown) (no (unknown) (unknown) She is rather frail (unit s (unknown) date) and uses a wheelchair. unknown ) She is accompanied today by her son (unknown) (no (unknown) (unknown) Signed By: (units (unk nown) date) unknown) (unknown) (no (unknown) (unknown) Smoking Status: (units (unknown) date) Never smoker unknown) (unknown) (no (unknown) (unknown) Smoking Status: Never (un its (unknown) date) smoker unknown) (unknown) (no (unknown) (unknown) Social History (units (unknown) date) (Reviewed 10/09/21 @ unknown) 10:37 by Emely Guerin MA) (unknown) (no (unknown) (unknown) Surgical History (units (unknown) date) (Reviewed 10/09/21 @ unknown) 10:37 by Emely Guerin MA) (unknown) (no (unknown) (unknown) Temp 97.8 F (units (unknown) date) unknown) (unknown) (no (unknown) (unknown) Temp Source (units (un known) date) Temporal Artery Scan unknown) (unknown) (no (unknown) (unknown) There is a low (units (unknown) date) midline scar from her unknown) section (unknown) (no (unknown) (unknown) This note may have (units (unknown) date) been all or partially unknown) generated using voice recognition (unknown) (no (unknown) (unknown) Tobacco Status (units (unknown) date) unknown) (unknown) (no (unknown) (unknown) 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 (unknown) (no (unknown) (unknown) have occurred. If (units (unknown) date) there are any unknown) questions, please contact the Medical Records (unknown) (no (unknown) (unknown) household members: (units (unknown) date) family unknown) (unknown) (no (unknown) (unknown) hydrochlorothiazide (unit s (unknown) date) 25 mg tablet tab unknown) 09/04/21 [History Confirmed 10/09/21] (unknown) (no (unknown) (unknown) lovastatin 20 mg (units (unknown) date) tablet tab 09/04/21 unknown) [History Confirmed 10/09/21] (unknown) (no (unknown) (unknown) may occur. (units (unk nown) date) Occasional wrong-word unknown) or 'sound-alike' substitutions may have (unknown) (no (unknown) (unknown) metformin 1,000 mg (units (unknown) date) tablet tab 09/04/21 unknown) [History Confirmed 10/09/21] (unknown) (no (unknown) (unknown) metoprolol tartrate (unit s (unknown) date) 25 mg tablet tab unknown) 09/04/21 [History Confirmed 10/09/21] (unknown) (no (unknown) (unknown) occurred due to the (unit s (unknown) date) inherent limitations unknown) of voice recognition software. Please (unknown) (no (unknown) (unknown) read the note (units ( unknown) date) carefully and unknown) recognize, using context, where these substitutions (unknown) (no (unknown) (unknown) software. Although (units (unknown) date) every effort is made unknown) to edit content, industrial relations specialist errors (unknown) (no (unknown) (unknown) tortuous colon. She (unit s (unknown) date) then had a virtual unknown) colonoscopy in [place] which I do not Result panel 11 (unknown) (no (unknown) (unknown) (no value) (units (unk nown) date) unknown) (unknown) (no (unknown) (unknown) Status: Acute (units ( unknown) date) unknown) (unknown) (no (unknown) (unknown) (no value) (units (unk nown) date) unknown) (unknown) (no (unknown) (unknown) 10/09/21 1042 (units ( unknown) date) unknown) (unknown) (no (unknown) (unknown) [place] [address] (unit s (unknown) date) unknown) (unknown) (no (unknown) (unknown) [facility] (units (unknown) date) unknown) (unknown) (no (unknown) (unknown) Signed (units (unkno wn) date) unknown) (unknown) (no (unknown) (unknown) Surgery Office Visit (uni ts (unknown) date) unknown) (unknown) (no (unknown) (unknown) (no value) (units (unk nown) date) unknown) (unknown) (no (unknown) (unknown) I do not have any (units (unknown) date) labs or notes from unknown) [facility]. (unknown) (no (unknown) (unknown) (1) Abnormal (units (u nknown) date) digestive system unknown) diagnostic imaging: (unknown) (no (unknown) (unknown) [id number] (units (unkno wn) date) unknown) (unknown) (no (unknown) (unknown) 10/09/21 (units (unkno wn) date) unknown) (unknown) (no (unknown) (unknown) 81-year-old woman who (un its (unknown) date) apparently has a mass unknown) of her colon on imaging from (unknown) (no (unknown) (unknown) Abdomen is soft and (unit s (unknown) date) moderately distended unknown) (unknown) (no (unknown) (unknown) Age/Sex: 81 / F (units (unknown) date) Date of Service: unknown) (unknown) (no (unknown) (unknown) Allergies (units (unkn own) date) unknown) (unknown) (no (unknown) (unknown) Assessment + Plan (units (unknown) date) unknown) (unknown) (no (unknown) (unknown) Attending Dr: Gage Cooper (uni ts (unknown) date) Mykel DALY unknown) (unknown) (no (unknown) (unknown) Vikash and (units ( unknown) date) re-evaluate her in 2 unknown) weeks' time when hopefully she has recovered (unknown) (no (unknown) (unknown) Vikash. She is (unit s (unknown) date) also anemic but I have unknown ) no idea how anemic she has. Will (unknown) (no (unknown) (unknown) Chief Complaint (units (unknown) date) unknown) (unknown) (no (unknown) (unknown) Chief Complaint: (units (unknown) date) Anemia and abnormal unknown) imaging of the colon (unknown) (no (unknown) (unknown) Counseling and (units (unknown) date) educating the unknown) patient/family/caregiv er: 12 (unknown) (no (unknown) (unknown) : 1940 (units (unknown) date) Acct:[id number] unknown) (unknown) (no (unknown) (unknown) Dept at (units (unkno wn) date) . unknown) (unknown) (no (unknown) (unknown) Details: (units (unkno wn) date) unknown) (unknown) (no (unknown) (unknown) Diabetes (units (unkno wn) date) unknown) (unknown) (no (unknown) (unknown) Documented By: (units (unknown) date) Gage Hogue MD unknown) 10/09/21 1025 (unknown) (no (unknown) (unknown) Documenting clinical (uni ts (unknown) date) information in unknown) EHR/Medical record: 8 (unknown) (no (unknown) (unknown) Exam (units (unkno wn) date) unknown) (unknown) (no (unknown) (unknown) Exam Narrative (units (unknown) date) unknown) (unknown) (no (unknown) (unknown) Exam Narrative: (units (unknown) date) unknown) (unknown) (no (unknown) (unknown) Frail, lethargic (units (unknown) date) woman in a wheelchair unknown) (unknown) (no (unknown) (unknown) : 2 (units (unk nown) date) unknown) (unknown) (no (unknown) (unknown) H/O: hysterectomy (units (unknown) date) unknown) (unknown) (no (unknown) (unknown) HPI (units (unkno wn) date) unknown) (unknown) (no (unknown) (unknown) Hypercholesterolemia (uni ts (unknown) date) unknown) (unknown) (no (unknown) (unknown) Hypertension (units (u nknown) date) unknown) (unknown) (no (unknown) (unknown) I explained that if (unit s (unknown) date) she has a mass in her unknown) right colon and she is bleeding from (unknown) (no (unknown) (unknown) Intake (units (unkno wn) date) unknown) (unknown) (no (unknown) (unknown) Is patient in pain?: (uni ts (unknown) date) No unknown) (unknown) (no (unknown) (unknown) Suraj. He reports that (un its (unknown) date) she had COVID a few unknown) weeks ago and has not fully recovered (unknown) (no (unknown) (unknown) Loc: [facility] (units (unkno wn) date) unknown) (unknown) (no (unknown) (unknown) Tanisha is a (units (u nknown) date) 81-year-old woman who unknown) has been treated for anemia since last (unknown) (no (unknown) (unknown) Medical History (units (unknown) date) (Updated 10/09/21 @ unknown) 10:39 by Gage Hogue MD) (unknown) (no (unknown) (unknown) Medications (units (un known) date) unknown) (unknown) (no (unknown) (unknown) No Known Drug (units ( unknown) date) Allergies Allergy unknown) (Verified 10/09/21 10:36) (unknown) (no (unknown) (unknown) January when she (units (unknown) date) received a blood unknown) transfusion in [place]. 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 (units (unknown) date) History unknown) (unknown) (no (unknown) (unknown) PFSH (units (unkno wn) date) unknown) (unknown) (no (unknown) (unknown) Pain Scale (units (unk nown) date) unknown) (unknown) (no (unknown) (unknown) Para: 2 (units (unkno wn) date) unknown) (unknown) (no (unknown) (unknown) Patient: (units (unkno wn) date) Tanisha Kirk C unknown) MR#: [id number] (unknown) (no (unknown) (unknown) Performing a (units (u nknown) date) medically appropriate unknown) exam and/or evaluation: 8 (unknown) (no (unknown) (unknown) Plan (units (unkno wn) date) unknown) (unknown) (no (unknown) (unknown) Preparing to see the (uni ts (unknown) date) patient, i.e., chart unknown) review, review of tests: 9 (unknown) (no (unknown) (unknown) Reason For Visit (units (unknown) date) unknown) (unknown) (no (unknown) (unknown) She is rather frail (unit s (unknown) date) and uses a wheelchair. unknown ) She is accompanied today by her son (unknown) (no (unknown) (unknown) Signed By: (units (unk nown) date) <Electronically signed unknown ) by Gage Hogue MD> (unknown) (no (unknown) (unknown) Smoking Status: (units (unknown) date) Never smoker unknown) (unknown) (no (unknown) (unknown) Smoking Status: Never (un its (unknown) date) smoker unknown) (unknown) (no (unknown) (unknown) Social History (units (unknown) date) unknown) (unknown) (no (unknown) (unknown) Surgical History (units (unknown) date) (Updated 09/04/21 @ unknown) 11:53 by Lori John RN) (unknown) (no (unknown) (unknown) There is a low (units (unknown) date) midline scar from her unknown) section (unknown) (no (unknown) (unknown) This note may have (units (unknown) date) been all or partially unknown) generated using voice recognition (unknown) (no (unknown) (unknown) Time Coding Minutes (unit s (unknown) date) Spent: (must be on unknown) same date of service/appointment) (unknown) (no (unknown) (unknown) Time Spent (units (unk nown) date) unknown) (unknown) (no (unknown) (unknown) Tobacco Status (units (unknown) date) unknown) (unknown) (no (unknown) (unknown) Total Time: 37 (units (unknown) date) unknown) (unknown) (no (unknown) (unknown) 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 (unknown) (no (unknown) (unknown) have occurred. If (units (unknown) date) there are any unknown) questions, please contact the Medical Records (unknown) (no (unknown) (unknown) he is concerned that (uni ts (unknown) date) she is too weak to unknown) have a blood draw. (unknown) (no (unknown) (unknown) her energy level (units (unknown) date) since then. unknown) (unknown) (no (unknown) (unknown) her frailty which is (uni ts (unknown) date) reasonable. I will unknown) request records from [place] and (unknown) (no (unknown) (unknown) household members: (units (unknown) date) family unknown) (unknown) (no (unknown) (unknown) hydrochlorothiazide (unit s (unknown) date) 25 mg tablet tab unknown) 09/04/21 [History Confirmed 10/09/21] (unknown) (no (unknown) (unknown) infection and risks (unit s (unknown) date) of anesthesia. He is unknown) hesitant to schedule surgery due to (unknown) (no (unknown) (unknown) lovastatin 20 mg (units (unknown) date) tablet tab 09/04/21 unknown) [History Confirmed 10/09/21] (unknown) (no (unknown) (unknown) may occur. (units (unk nown) date) Occasional wrong-word unknown) or 'sound-alike' substitutions may have (unknown) (no (unknown) (unknown) metformin 1,000 mg (units (unknown) date) tablet tab 09/04/21 unknown) [History Confirmed 10/09/21] (unknown) (no (unknown) (unknown) metoprolol tartrate (unit s (unknown) date) 25 mg tablet tab unknown) 09/04/21 [History Confirmed 10/09/21] (unknown) (no (unknown) (unknown) more of her energy (units (unknown) date) level. unknown) (unknown) (no (unknown) (unknown) nd attempted (units (un known) date) colonoscopy by Dr. ruff) Brandi but he was unable to reach the cecum due (unknown) (no (unknown) (unknown) occurred due to the (unit s (unknown) date) inherent limitations unknown) of voice recognition software. Please (unknown) (no (unknown) (unknown) read the note (units ( unknown) date) carefully and unknown) recognize, using context, where these substitutions (unknown) (no (unknown) (unknown) request records from (uni ts (unknown) date) [place] and unknown) [place]. I recommended to her son that (unknown) (no (unknown) (unknown) risks of this surgery (un its (unknown) date) including anastomotic unknown) leak, bleeding, blood clots, wound (unknown) (no (unknown) (unknown) software. 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 I went over the (unknown) (no (unknown) (unknown) to a tortuous colon. (uni ts (unknown) date) She then had a virtual unknown ) colonoscopy in [place] which I (unknown) (no (unknown) (unknown) we have her blood (units (unknown) date) drawn here so that I unknown) can see if she is profoundly anemic but Social History date description facility (no date) Never smoked tobacco (finding) [facility] Vital Signs date measurement value units +0000 BMI BMI 19.7 kg/m2 [id number]+0000 BP_diastolic BP_diastolic 55 mm[H g] [id number]+0000 BP_systolic BP_systolic 128 mm[Hg] [id number]+0000 heart_rate heart_rate 76 /min [id number]+0000 height_metric height_metric 157.48 cm [id number]+0000 height_standard height_standard 62 in [id number]+0000 respiration_rate respiration_rate 18 /min [id number]+0000 temperature_metric temperature_metric 36.78 C [id number]+0000 temperature_standard temperature_standard 9 8.2 F [id number]+0000 weight_metric weight_metric 48.98 kg [id number]+0000 weight_standard weight_standard 107.98 lb
[2021-10-27 21:57] LABS: BASOPHILS % (AUTO) 0.1 %; HCT - HEMATOCRIT 25.9 % (37.0-47.0); HGB - HEMOGLOBIN 7.5 g/dL (12.0-16.0); LYMPHOCYTES # (AUTO) 0.8 10^3/uL (1.5-3.5); LYMPHOCYTES % (AUTO) 8.7 %; MEAN CORPUSCULAR HEMOGLOBIN 22.1 pg (27.0-31.0); MEAN CORPUSCULAR VOLUME 76.4 fL (81.0-99.0); MEAN PLATELET VOLUME 10.5 fL (7.9-10.8); MONOCYTES # (AUTO) 0.9 10^3/uL (0.0-1.0); MONOCYTES % (AUTO) 9.6 %; NEUTROPHILS # (AUTO) 7.8 10^3/uL (1.5-6.6); NEUTROPHILS % (AUTO) 81.2 %; NRBC ABSOLUTE COUNT (AUTO) 0.05 x10^3/uL; NUCLEATED RED BLOOD CELLS AUTO 0.5 /100WBC; PLT - PLATELET COUNT 205 10^3/uL (130-450); RED BLOOD COUNT 3.39 10^6/uL (4.20-5.40); RED CELL DISTRIBUTION WIDTH 19.3 % (12.0-15.0); WHITE BLOOD COUNT 9.6 x10^3/uL (4.8-10.8)
[2021-10-27 22:19] LABS: ALBUMIN 3.5 g/dL (3.2-5.5); BILIRUBIN,TOTAL 1.3 mg/dL (0.2-1.0); CALCIUM 9.5 mg/dL (8.5-10.3); CREATININE 1.2 mg/dL (0.4-1.0); POTASSIUM 4.2 mmol/L (3.5-5.0)
[2021-10-27] MEDS ORDERED: SODIUM CHLORIDE 0.9% 500 ML IV STA (22:42)
--- NOTE | 2021-10-27 23:01 | ED Physician Documentation ---
History of Present Illness - Stated complaint Stated Complaint: FATIGUE/NOT EATING - Chief complaint Chief Complaint: General - History obtained from History obtained from: Family - History of Present Illness Timing: How many days ago (3) - Additonal information Additional information: 81-year-old female with history of hypertension, hyperlipidemia, non-insulin- dependent diabetes presents by private vehicle for 3 days of refusal to eat and profound generalized weakness. History is obtained from son at bedside, who states that the patient has been relatively listless and fatigued after marisabel COVID-19 1 month ago. However the patient 3 days ago began refusing any and all food and has become so weak that she requires maximum assistance with any of her daily activities. He states that she has fallen numerous times over the last few days and has hit her head. He did a home COVID-19 test 2 days ago that was negative. Patient denies complaints Review of Systems Unable to obtain: Confused, Other (Per son) GI: reports: Other (anorexia) Neurologic: reports: Generalized weakness PD PAST MEDICAL HISTORY - Past Medical History Past Medical History: Yes Cardiovascular: Hypertension Respiratory: Shortness of breath Neuro: Dementia Endocrine/Autoimmune: Type 2 diabetes GI: None CARDIAC TECH: Other () : Incontinence HEENT: Chronic vision loss, Macular degeneration Psych: None Musculoskeletal: Chronic back pain Derm: None - Past Surgical History /CARDIAC TECH: section, Tubal ligation HEENT: Cataracts - Present Medications Home Medications: Ambulatory Orders Medication Instructions Recorded Confirmed Lovastatin 20 mg PO QPM 01/21/21 05/03/21 Metoprolol Tartrate [Lopressor] 12.5 mg PO BID 01/21/21 05/03/21 hydroCHLOROthiazide [Hydrodiuril] 25 mg PO DAILY 01/21/21 05/03/21 metFORMIN [Glucophage] 1,000 mg PO BIDWM 01/21/21 05/03/21 Ferrous Gluconate 240 mg PO DAILY #30 tablet 01/22/21 05/03/21 Ondansetron Odt [Zofran] 4 mg TL Q6H PRN #10 tablet 10/03/21 - Allergies Allergies/Adverse Reactions: Allergies Allergy/AdvReac Type Severity Reaction Status Date / Time No Known Drug Allergies Allergy Verified 10/27/21 21:14 - Social History Does the pt smoke?: No Smoking Status: Never smoker - POLST Patient has POLST: No POLST Status: Full Code PD ED PE NORMAL - Vitals Vital signs reviewed: Yes - General General: Other (Debilitated, frail, pale) - HEENT HEENT: Atraumatic, PERRL, Other (poor dentition. Old food in mouth) - Neck Neck: Supple, no meningeal sign, No bony TTP, C-Spine cleared by NEXUS criteria - Cardiac Cardiac: RRR, Strong equal pulses - Respiratory Respiratory: No respiratory distress, Other (diminished breath sounds, poor effort) - Abdomen Abdomen: Soft, Non tender, Non distended - Derm Derm: Warm and dry, No rash, Other (pale) - Extremities Extremities: No deformity, Normal ROM s pain - Neuro Neuro: pressurizer 2-12 intact, No motor deficit, Other (AOx2) Results - Vitals Vitals: Vital Signs - 24 hr 10/27/21 10/28/21 10/28/21 21:14 00:59 02:34 Temperature 36.5 C Heart Rate 84 65 100 Respiratory 16 18 18 Rate Blood Pressure 125/80 131/77 H 101/62 O2 Saturation 94 100 92 10/28/21 10/28/21 10/28/21 04:00 05:00 06:00 Temperature Heart Rate 56 L 86 77 Respiratory 14 16 16 Rate Blood Pressure 111/76 94/60 161/87 H O2 Saturation 99 98 100 Oxygen O2 Source Room air - Labs Labs: Laboratory Tests 10/27/21 10/27/21 10/27/21 21:51 21:51 21:51 WBC 9.6 RBC 3.39 L Hgb 7.5 L Hct 25.9 L MCV 76.4 L MCH 22.1 L MCHC 29.0 L RDW 19.3 H Plt Count 205 MPV 10.5 Neut # (Auto) 7.8 H Lymph # (Auto) 0.8 L Cherry # (Auto) 0.9 Eos # (Auto) 0.0 Baso # (Auto) 0.0 Absolute Nucleated RBC 0.05 Nucleated RBC % 0.5 PT INR APTT Sodium 136 Potassium 4.2 Chloride 96 L Carbon Dioxide 23 Anion Gap 17.0 H BUN 40 H Creatinine 1.2 H Estimated GFR (MDRD) 43 L Glucose 220 H Calcium 9.5 Total Bilirubin 1.3 H AST 543 H ALT 469 H Alkaline Phosphatase 205 H Ammonia Troponin I High Sens 87.0 H* B-Natriuretic Peptide Total Protein 7.0 Albumin 3.5 Globulin 3.5 Albumin/Globulin Ratio 1.0 Lipase 40 Urine Color Urine Clarity Urine pH Ur Specific [place] Urine Protein Urine Glucose (UA) Urine Ketones Urine Occult Blood Urine Nitrite Urine Bilirubin Urine Urobilinogen Ur Leukocyte Esterase Ur Microscopic Review Urine Culture Comments SARS-CoV-2 (PCR) 10/27/21 10/27/21 10/27/21 21:51 21:51 23:34 WBC RBC Hgb Hct MCV MCH MCHC RDW Plt Count MPV Neut # (Auto) Lymph # (Auto) Cherry # (Auto) Eos # (Auto) Baso # (Auto) Absolute Nucleated RBC Nucleated RBC % PT 18.8 H INR 1.7 H APTT 27.5 Sodium Potassium Chloride Carbon Dioxide Anion Gap BUN Creatinine Estimated GFR (MDRD) Glucose Calcium Total Bilirubin AST ALT Alkaline Phosphatase Ammonia Troponin I High Sens B-Natriuretic Peptide 915 H Total Protein Albumin Globulin Albumin/Globulin Ratio Lipase Urine Color YELLOW Urine Clarity CLEAR Urine pH 5.5 Ur Specific [place] 1.025 Urine Protein TRACE Urine Glucose (UA) NEGATIVE Urine Ketones TRACE Urine Occult Blood NEGATIVE Urine Nitrite NEGATIVE Urine Bilirubin NEGATIVE Urine Urobilinogen 0.2 (NORMAL) Ur Leukocyte Esterase NEGATIVE Ur Microscopic Review NOT INDICATED Urine Culture Comments NOT INDICATED SARS-CoV-2 (PCR) 10/28/21 10/28/21 10/28/21 00:57 02:41 06:39 WBC 10.2 RBC 2.88 L Hgb 6.5 L* Hct 21.9 L MCV 76.0 L MCH 22.6 L MCHC 29.7 L RDW 19.4 H Plt Count 159 MPV 10.8 Neut # (Auto) 8.6 H Lymph # (Auto) 0.6 L Cherry # (Auto) 1.0 Eos # (Auto) 0.0 Baso # (Auto) 0.0 Absolute Nucleated RBC 0.02 Nucleated RBC % 0.2 PT INR APTT Sodium Potassium Chloride Carbon Dioxide Anion Gap BUN Creatinine Estimated GFR (MDRD) Glucose Calcium Total Bilirubin AST ALT Alkaline Phosphatase Ammonia < 10.0 Troponin I High Sens B-Natriuretic Peptide Total Protein Albumin Globulin Albumin/Globulin Ratio Lipase Urine Color Urine Clarity Urine pH Ur Specific [place] Urine Protein Urine Glucose (UA) Urine Ketones Urine Occult Blood Urine Nitrite Urine Bilirubin Urine Urobilinogen Ur Leukocyte Esterase Ur Microscopic Review Urine Culture Comments SARS-CoV-2 (PCR) DETECTED A PD MEDICAL DECISION MAKING - ED course Complexity details: reviewed results, re-evaluated patient, considered differential, d/w patient, d/w family ED course: Patient with anorexia, profound worsening of weakness over last 3 days. Patient appears debilitated and fatigued, easily rouses to voice and denies complaints. Son states that patient's baseline is ambulatory with walker and relatively independent with ADLs. Labs significant for elevated liver enzymes. Patient had labs 1 month ago and liver enzymes at that time were normal. Patient denying abdominal complaints, however will obtain CT scan. CT shows large calcified gallstone. Call placed to general surgery, who stated that they felt they could see a mass at the end of the gallbladder. Patient also has large bilateral pleural effusions, which were not previously seen. Troponin 87, BNP 915. Call placed to transfer center. Hospitalist requested INR and ammonia level and call back. Patient incidentally covid positive. Call placed to [facility] for transfer, she is on the waiting list at several centers. Morning labs were significant for hemoglobin 6.5. Type and screen sent to lab, unit PRBCs ordered for transfusion. Started on low dose maintenance fluids given patient's extremely poor p.o. status. Care of patient signed out to oncoming provider. Departure - Departure Disposition: 02 Transfer Acute Care Hosp Clinical Impression: Acute liver failure, Anemia requiring transfusions, Failure to thrive in adult, Debility, Frequent falls Condition: Poor
[2021-10-27 23:47] LABS: GLUCOSE, URINE (UA) NEGATIVE (NEGATIVE); KETONES,URINE (UA) TRACE mg/dL (NEGATIVE); LEUKOCYTE ESTERASE, URINE NEGATIVE (NEGATIVE); NITRITE,URINE NEGATIVE (NEGATIVE); OCCULT BLOOD,URINE NEGATIVE (NEGATIVE); PH,URINE 5.5 PH (5.0-7.5); PROTEIN,URINE TRACE mg/dL (NEGATIVE); UROBILINOGEN,URINE 0.2 (NORMAL) E.U./dL (NORMAL)
[2021-10-27 23:50] LABS: BILIRUBIN,URINE NEGATIVE (NEGATIVE); CLARITY,URINE CLEAR (CLEAR); ICTOTEST,URINE NEGATIVE
--- NOTE | 2021-10-28 00:40 | XRAY Report ---
PROCEDURE: Chest 1 View X-Ray INDICATIONS: SEVERE WEAKNESS TECHNIQUE: One view of the chest was acquired. COMPARISON: 10/03/2021. Correlation is also made with the accompanying head CT and cervical spine CT, 10/28/2021. FINDINGS: Surgical changes and devices: None. Lungs and pleura: Low lung volumes can be seen, causing a crowded appearance to the lung markings. G eneralized interstitial prominence can be seen. Streaky opacity can be seen involving the right lung base. Blunting of the costophrenic angles can be seen. No pneumothorax is seen. Mediastinum: The aorta is prominent and tortuous. The cardiac contours are mildly enlarged. Bones and chest wall: No suspicious bony lesions. Age-appropriate degenerative changes are seen. O verlying soft tissues appear unremarkable. IMPRESSION: Mild cardiomegaly with bilateral pleural effusions and interstitial prominence. CHF is suspected. There is streaky opacity seen in the right lung base. Atelectasis is suspected, although differential diagnosis includes superimposed infiltrate. Reviewed by: Juan Hooks MD on 10/27/2021 11:45 PM HARPER Approved by: Juna Hooks MD on 10/27/2021 11:45 PM HARPER Station ID: [id number]
--- NOTE | 2021-10-28 00:42 | CT Report ---
PROCEDURE: HEAD WO INDICATIONS: FREQUENT FALLS, GEN WEAKNESS, AMS TECHNIQUE: Noncontrast 4.5 mm thick angled axial sections acquired from the foramen magnum to the vertex. For r adiation dose reduction, the following was used: automated exposure control, adjustment of mA and/or kV according to patient size. COMPARISON: Prior head CT, 10/03/2021. Correlation is also made with the accompanying chest radiograp h, cervical spine CT, and abdomen and pelvis CT, 10/28/2021. FINDINGS: Image quality: Motion artifact is noted. CSF spaces: Basal cisterns are patent. No extra-axial fluid collections. Ventricles are normal in size and shape. Brain: No midline shift. No intracranial masses or hemorrhage. Watson-white matter interface is norm al. Age-appropriate brain parenchymal volume loss and chronic small vessel ischemic change can be se en. Skull and face: Calvarium and visualized facial bones are intact, without suspicious lesions. Sinuses: Visualized sinuses and mastoids are clear. IMPRESSION: No intracranial hemorrhage is seen. No significant intracranial abnormality is seen. Age-appropriate brain parenchymal volume loss and chronic small vessel ischemic change can be seen. Reviewed by: Juan Hooks MD on 10/27/2021 11:47 PM HARPER Approved by: Juan Hooks MD on 10/27/2021 11:47 PM HARPER Station ID: [id number]
--- NOTE | 2021-10-28 00:45 | CT Report ---
PROCEDURE: CERVICAL SPINE WO INDICATIONS: FREQUENT FALLS, WEAKNESS, AMS TECHNIQUE: Noncontrast 3 mm thick sections acquired from the skull base to the T4 level. Sagittal and coronal r eformats were then constructed. For radiation dose reduction, the following was used: automated exp osure control, adjustment of mA and/or kV according to patient size. COMPARISON: Correlation is made with the accompanying imaging, 10/28/2021. FINDINGS: Image quality: Motion artifact is noted. Bones: No fractures or dislocations. Visualized superior ribs are intact. Degenerative changes are seen, with moderate disc space narrowing at C3-C4, with moderate to severe d isc space narrowing at C4-C5, C5-C6, and C6-C7. Posterior directed endplate osteophytes are seen, whi ch are worst at C3-C4 and at C5-C6. Soft tissues: Moderate bilateral pleural effusions are seen. Prevertebral soft tissues are normal in thickness. No paravertebral hematomas. No apical pneumothor aces. There is a rim calcified left thyroid lesion that measures 2.5 cm. Additional smaller calcified thyro id nodules are seen. IMPRESSION: Motion limited study, without an acute fracture seen. Degenerative changes are seen, which are worst at C4-C5 and at C5-C6. Moderate bilateral pleural effusions are seen. Calcified thyroid lesions are seen. If clinically appropriate, please consider a follow-up thyroid ul trasound for further evaluation. Reviewed by: Juan Hooks MD on 10/27/2021 11:50 PM HARPER Approved by: Juan Hooks MD on 10/27/2021 11:50 PM AKTRISTON Station ID: [id number]
--- NOTE | 2021-10-28 00:52 | CT Report ---
PROCEDURE: Abdomen/Pelvis W INDICATIONS: ANOREXIA, ELEVATED LIVER EZ CONTRAST: IV CONTRAST: Optiray 320 ml: 100 PO CONTRAST: *NO PO CONTRAST TECHNIQUE: After the administration of IV contrast, 5 mm thick sections acquired from the diaphragms to the symp hysis. 5 mm thick coronal and sagittal reformats were acquired. For radiation dose reduction, the f ollowing was used: automated exposure control, adjustment of mA and/or kV according to patient size. COMPARISON: Correlation is made with the accompanying imaging, 10/28/2021. FINDINGS: Image quality: Excellent. ABDOMEN: Lung bases: Moderate bilateral pleural effusions are seen, with overlying apparent atelectasis. The h eart size is at the upper limits of normal. Solid organs: There is reflux of contrast seen into the hepatic veins and into the inferior vena cav a. Liver and spleen are normal in size and enhancement. Gallbladder demonstrates a 4 cm rim calcifie d gallstone. No additional CT abnormality of the gallbladder is seen. Biliary system is non dilated. Pancreas enhances normally. No adrenal nodules. Kidneys demonstrate normal size, without hydronephrosis. Bilateral renal cysts are seen, with the la rgest seen within the left mid kidney laterally measuring 3.7 cm and measuring water density. There i s a nonobstructing stone seen at the inferior pole of the left kidney measuring 1100 Hounsfield units and 1 cm. Focal cortical loss can be seen involving the superior lateral left kidney. The kidneys en ute symmetrically. Peritoneum and bowel: Bowel loops demonstrate normal wall thickness and caliber. Mild ascites is see n adjacent to the liver, without significant narrowing fluid within the pelvis. No free air is seen. Nodes and vessels: No retroperitoneal or mesenteric adenopathy by size criteria. Aorta and inferior vena cava are normal in size. Miscellaneous: No ventral hernias. PELVIS: Genitourinary: Bladder wall thickness is normal. This patient is status post hysterectomy. No adnex al masses can be seen. Miscellaneous: No inguinal hernias or adenopathy. Left anterior pelvis clips can be seen. Bones: No suspicious bony lesions. No vertebral body compression fractures. There is a remote supe rior endplate compression deformity of L2, with 20% loss of height centrally. IMPRESSION: Moderate bilateral pleural effusions are seen. Heart size at the upper limits of normal and there is reflux of contrast seen into the inferior vena cava and hepatic veins. Please consider CHF. Incidental note is made of: 4 cm rim calcified gallstone 1 cm nonobstructing left-sided kidney stone Simple appearing renal cysts Focal cortical loss involving the superolateral left kidney Remote L2 superior endplate compression deformity Hysterectomy Left anterior pelvis clips Reviewed by: Juan Hooks MD on 10/27/2021 11:57 PM AKDT Approved by: Juan Hooks MD on 10/27/2021 11:57 PM AKDT Station ID: [id number]
[2021-10-28 02:36] LABS: INR 1.7 (0.8-1.2); PT - PROTHROMBIN TIME 18.8 secs (9.9-12.6)
[2021-10-28 02:43] LABS: PARTIAL THROMBOPLASTIN TIME 27.5 secs (24.9-33.3)
[2021-10-28] MEDS ORDERED: SODIUM CHLORIDE 0.9% 1,000 ML IV STA (06:09)
[2021-10-28 06:45] LABS: BASOPHILS % (AUTO) 0.1 %; HCT - HEMATOCRIT 21.9 % (37.0-47.0); LYMPHOCYTES # (AUTO) 0.6 10^3/uL (1.5-3.5); LYMPHOCYTES % (AUTO) 5.9 %; MEAN CORPUSCULAR HEMOGLOBIN 22.6 pg (27.0-31.0); MEAN CORPUSCULAR HGB CONC 29.7 g/dL (32.0-36.0); MONOCYTES % (AUTO) 9.9 %; NEUTROPHILS # (AUTO) 8.6 10^3/uL (1.5-6.6); NEUTROPHILS % (AUTO) 83.7 %; NRBC ABSOLUTE COUNT (AUTO) 0.02 x10^3/uL; NUCLEATED RED BLOOD CELLS AUTO 0.2 /100WBC; RED BLOOD COUNT 2.88 10^6/uL (4.20-5.40); RED CELL DISTRIBUTION WIDTH 19.4 % (12.0-15.0); WHITE BLOOD COUNT 10.2 x10^3/uL (4.8-10.8)
[2021-10-28 06:49] LABS: HGB - HEMOGLOBIN 6.5 g/dL (12.0-16.0); PLT - PLATELET COUNT 159 10^3/uL (130-450)
[2021-10-28 06:50] LABS: MEAN PLATELET VOLUME 10.8 fL (7.9-10.8)
[2021-10-28 07:02] LABS: ALBUMIN 3.1 g/dL (3.2-5.5); ALBUMIN/GLOBULIN RATIO 1.1 (1.0-2.2); BILIRUBIN,TOTAL 1.3 mg/dL (0.2-1.0); CALCIUM 8.9 mg/dL (8.5-10.3); CREATININE 1.1 mg/dL (0.4-1.0); POTASSIUM 4.3 mmol/L (3.5-5.0); TOTAL PROTEIN 5.8 g/dL (6.7-8.2)
[2021-10-28] MEDS ORDERED: cefTRIAXone 1 GM VIAL IVP STA (07:15)
[2021-10-28] MEDS ORDERED: AZITHROMYCIN INJ 500 MG in SODIUM CHLORIDE 0.9% 250 ML IV STA (07:15)
[2021-10-28] MEDS ORDERED: FUROSEMIDE 20 MG/2 ML VIAL IVP STA (09:33)
[2021-10-28 16:05] LABS: HCT - HEMATOCRIT 25.1 % (37.0-47.0); HGB - HEMOGLOBIN 7.9 g/dL (12.0-16.0)
--- NOTE | 2021-10-28 17:10 | ED Physician Documentation ---
ED Addendum - Addendum Addendum: 10/28/21 17:08 The patient remains in the ER through the day. No particular complaints. No beds have been found through the [facility] nor other hospitals. I reviewed the findings from earlier. There have been a CT concerning for gallstones without obvious cholecystitis. We can do an ultrasound today to evaluate better on the idea or of any cholecystitis. The duct had appeared good on CT and we can reevaluate that as well. Chest x-ray that showed some infiltrate as well as some some effusions. I gave some IV antibiotics to cover for potential pneumonia. We can recheck liver enzymes later today. There is still the concern and consideration for disposition if this is somethin g that requires other facility versus admission to our facility. There have been no beds overnight but we will see if any open through the day today. Here at our facility.
--- NOTE | 2021-10-28 17:11 | Ultrasound Report ---
PROCEDURE: Abdominal ultrasound, limited INDICATIONS: elevated LFTs TECHNIQUE: Real-time focused scanning was performed of the abdomen, with image documentation. COMPARISON: None FINDINGS: Liver: Normal is size and echotexture. No evidence of focal mass lesion. No intra hepatic biliary ductal dilatation. Gallbladder: Shadowing calculi noted within the lumen of the gallbladder. There is GB thickening at 4.4 mm thick, and probable pericholecystic fluid present. Common Bile Duct: 7.1 mm. Pancreas: Unremarkable as visualized. Right Kidney: Appropriate in size and echotexture. No evidence of hydronephrosis. No shadowing calc usha. No solid or cystic mass lesion. Incidental right renal cyst measures up to 1.3 x 1.1 cm Minimal free fluid noted in the abdomen, and incidental right pleural effusion IMPRESSION: Cholelithiasis, gallbladder wall thickening and pericholecystic fluid consistent with acute cholecyst itis Moderate right-sided pleural effusion and free fluid in the abdomen incidentally noted Reviewed by: Juan Raymond MD on 10/28/2021 4:10 PM [facility]DT Approved by: Juan Raymond MD on 10/28/2021 4:10 PM AKDT Station ID: [id number]
[2021-10-28] MEDS ORDERED: PIPERACILLIN/TAZOBACTAM 3.375 GM in SODIUM CHLORIDE 0.9% MINIBAG 100 ML IV STA (17:53)
--- NOTE | 2021-10-28 20:26 | CONSULTATION NOTE ---
Referring Provider Consult Date: 10/28/21 Chief Complaint - Chief Complaint Chief Complaint: weakness and no appetitie History of Present Illness - Admitted From Admitted From:: ed - History Obtained From Records Reviewed: yes History obtained from: pt and record review Exam Limitations: none - History of Present Illness HPI Comment/Other: weak since having covid 1 month ago. brought to the ED last pm by family due to increased weakness and not eating for 3 days. She was found to be very anemic. She has been given blood and feels improved. she denies abdominal pain. no evidence gi bleed at this time History - Past Medical History Cardiovascular: reports: Hypertension Respiratory: reports: Shortness of breath Neuro: reports: Dementia Endocrine/Autoimmune: reports: Type 2 diabetes GI: reports: None AUDIO VISUAL TECH: reports: Other () : reports: Incontinence HEENT: reports: Chronic vision loss, Macular degeneration Psych: reports: None Musculoskeletal: reports: Chronic back pain Derm: reports: None MRSA Hx?: No - Past Surgical History /AUDIO VISUAL TECH: reports: section, Tubal ligation HEENT: reports: Cataracts - Family & Social History Family History Comment/Other: Mom at age 62 of complications of diabetes and hypertension. Dad at age 73 of complications of a brain tumor. 3 brothers. One of leukemia. One brother survived kidney cancer. 1 brother is healthy. The 2 brothers are alive and living in [facility]. 2 sons: Completely healthy Living Situation: With family Social History Notes: No history of alcohol abuse. Former smoker, socially when she was out and about until her early 30s. She is from [facility]. Met her [place] when he was in the [employer] and stationed in [facility]. He was from [facility]. They when she was 34. She lived all over the [facility]. In the end, resided in [place], [place]. Son, who is currently in the [employer] reserves, and works as an oil pumper for the [employer] (retired from the [employer]) brought her to live with him 3 years ago here on the [place]. Her second son is in the [employer] in [place]. - Substance History Use: Uses substance without health or social issues: NONE - POLST Patient has POLST: No POLST Status: Full Code Meds/Allgy - Home Medications Home Medications: Ambulatory Orders Medication Instructions Recorded Confirmed Lovastatin 20 mg PO QPM 01/21/21 05/03/21 Metoprolol Tartrate [Lopressor] 12.5 mg PO BID 01/21/21 05/03/21 hydroCHLOROthiazide [Hydrodiuril] 25 mg PO DAILY 01/21/21 05/03/21 metFORMIN [Glucophage] 1,000 mg PO BIDWM 01/21/21 05/03/21 Ferrous Gluconate 240 mg PO DAILY #30 tablet 01/22/21 05/03/21 Ondansetron Odt [Zofran] 4 mg TL Q6H PRN #10 tablet 10/03/21 - Allergies Allergies/Adverse Reactions: Allergies Allergy/AdvReac Type Severity Reaction Status Date / Time No Known Drug Allergies Allergy Verified 10/27/21 21:14 Review of Systems - Other Findings Other Findings: 10 pt ros as above otherwise unremarkable Exam - Vital Signs Vital Signs: Vital Signs x48h Temp Pulse Pulse Resp BP BP Pulse Ox 10/28/21 19:00 58 L 16 106/76 98 10/28/21 18:40 110 H 16 100/84 H 98 10/28/21 16:00 90 16 113/66 95 10/28/21 14:00 126 H 16 125/85 H 94 10/28/21 13:45 36.6 C 69 16 109/80 97 10/28/21 13:22 36.7 C 82 12 112/103 H 98 10/28/21 12:52 36.2 C L 80 16 107/85 H 94 - Physical Exam General Appearance: positive: No acute distress, Alert, Lethargic Eyes Bilateral: positive: PERRL, EOMI, No scleral icterus ENT: positive: No signs of dehydration Neck: positive: No JVD, Trachea midline Respiratory: positive: No respiratory distress Cardiovascular: positive: Regular rate & rhythm Abdomen: positive: Non-tender, No distention Extremities: positive: No pedal edema Neurologic/Psychiatric: positive: Oriented x3, Other (responds to questions appropriately and understands some tajik) Conclusion/Plan - Problem List (1) Elevated liver enzymes Conclusion/Plan: she does not have acute cholecystitis clinically. she is afebrile, normal wbc, denies abdominal pain, and has a soft nontender abdominal exam. Antibiotics are reasonable. diet of choice is recommended Her ct with mass like thickening of her distal gallbladder and absence of plane between her gallbladder and common bile duct along with bilateral pleural effusions and elevated lfts is very concerning to me for possible malignancy. She is certainly not a surgical candidate at a [facility]. I believe she needs to be admitted to a medicine service at a hospital that can offer a higher level of care. In my opinion gi consult is needed for further work up of her elevated lfts and rule biliary malignancy. - Lab Results Fish Bones: 10/28/21 16:00 10/28/21 06:39 - Diagnostic Imaging Results Diagnostic Imaging Results: positive: Read independently (I am concerned she has a mass of the distal gallbladder, cystic duct area. I do not see a plane between her gallbladder and common bile duct. she has mild free fluid in her abdomen and large bilateral pleural effusions she has a large non obstruction gallstone)
--- NOTE | 2021-10-28 22:47 | ED Physician Documentation ---
ED Addendum - Addendum Addendum: I consulted general surgery, Dr. Gann for the ultrasound report that have been ordered by Dr. Mortensen which showed potential cholecystitis. Dr. Gann came and evaluated the patient. He does not feel that the patient has acute cholecystitis. He recommends transfer for higher level of care. We will keep the patient on Zosyn given the potential infection. Patient will be signed out to the oncoming emergency department physician. I asked him to place a full consult note in the chart.
[2021-10-28] MEDS: PIPERACILLIN/TAZOBACTAM 3.375 GM in SODIUM CHLORIDE 0.9% MINIBAG 100 ML IV SCH (23:13)
[2021-10-29] MEDS: PIPERACILLIN/TAZOBACTAM 3.375 GM in SODIUM CHLORIDE 0.9% MINIBAG 100 ML IV SCH ×4 (05:11→23:16)
[2021-10-29 06:51] LABS: BASOPHILS % (AUTO) 0.1 %; HCT - HEMATOCRIT 26.7 % (37.0-47.0); HGB - HEMOGLOBIN 8.3 g/dL (12.0-16.0); LYMPHOCYTES # (AUTO) 0.7 10^3/uL (1.5-3.5); LYMPHOCYTES % (AUTO) 6.4 %; MEAN CORPUSCULAR HEMOGLOBIN 24.6 pg (27.0-31.0); MEAN CORPUSCULAR HGB CONC 31.1 g/dL (32.0-36.0); MONOCYTES % (AUTO) 9.2 %; NEUTROPHILS # (AUTO) 8.9 10^3/uL (1.5-6.6); NEUTROPHILS % (AUTO) 83.9 %; NRBC ABSOLUTE COUNT (AUTO) 0.09 x10^3/uL; NUCLEATED RED BLOOD CELLS AUTO 0.8 /100WBC; PLT - PLATELET COUNT 63 10^3/uL (130-450); RED BLOOD COUNT 3.38 10^6/uL (4.20-5.40); RED CELL DISTRIBUTION WIDTH 19.7 % (12.0-15.0); WHITE BLOOD COUNT 10.6 x10^3/uL (4.8-10.8)
[2021-10-29 07:06] LABS: ALBUMIN 2.8 g/dL (3.2-5.5); BILIRUBIN,TOTAL 2.1 mg/dL (0.2-1.0); CALCIUM 8.2 mg/dL (8.5-10.3); CREATININE 1.5 mg/dL (0.4-1.0); POTASSIUM 4.6 mmol/L (3.5-5.0); TOTAL PROTEIN 5.5 g/dL (6.7-8.2)
[2021-10-29] MEDS ORDERED: diltiaZEM INJ 125 MG in DEXTROSE 5% 100 ML IV STA (10:30)
[2021-10-29] MEDS ORDERED: diltiaZEM INJ 5 MG/ML VIAL IVP STA (10:30)
--- NOTE | 2021-10-29 17:12 | ED Physician Documentation ---
ED Addendum - Addendum Addendum: 10/29/21 18:11 Patient received a signout from outgoing physician, please see their do cumentation for further detail. Patient continues to board in the emergency department pending acceptance from an appropriate surgical facility for acute cholecystitis. During my shift patient went into A. fib with RVR and was started on a Cardizem drip. This did successfully achieve rate control. Had a conversation with the patient's son who does continue to endorse that his mother would wish to remain full code and would want all interventions. At this time I will be signing out to the oncoming physician, please see their documentation for further detail.
[2021-10-29 23:05] VITALS: BP 131/70
[2021-10-30 07:08] LABS: HBsAG SCREEN Negative (Negative); HCV AB 0.1 s/co ratio (0.0-0.9); HEPATITIS B CORE IGM AB Negative (Negative)
--- NOTE | 2021-11-22 08:24 | ED Physician Documentation ---
ED Addendum - Addendum Addendum: 11/22/21 08:23 Care signed to me by outgoing provider. Labs show worsening liver function. Patient is on diltiazem drip for A. fib with RVR, currently rate controlled. Shortly after accepted care of patient she was accepted by outside hospital for transfer. She was transferred in guarded, but stable condition to accepting facility.
== END 2021-10-30 00:06 | disposition short-term general hospital (02) ==
LOC: ED 21:06
DX: U07.1 COVID-19 (principal); K72.00 Acute and subacute hepatic failure without coma; D64.9 Anemia, unspecified; I10 Essential (primary) hypertension; E11.9 Type 2 diabetes mellitus without complications; Z79.84 Long term (current) use of oral hypoglycemic drugs; R63.0 Anorexia; R62.7 Adult failure to thrive; Z91.81 History of falling
CPT/HCPCS: 36415; 36430; 70450; 71045; 72125; 74177; 76705; 80053; 81003; 82140; 83605; 83690; 83880; 84484; 85014; 85018; 85025; 85610; 85730; 86705; 86709; 86803; 86850; 86900; 86901; 86920; 87340; 87635; 93005; 96361; 96365; 96366; 96367; 96375; 96376; 99285; P9016; Q9967; 81001; 82274; 87086